=== PATIENT | female | born 1960 | race Caucasian/White ===

== ENCOUNTER → 2017-05-17 13:20 | Outpatient (CLI) | payer MEDICAID, SELFPAY ==
--- NOTE | 2017-05-17 13:26 | RAD_ITS ---
STUDY: X-RAY CHEST REASON FOR EXAM: Female, 57 years old. Dyspnea/shortness of breath. TECHNIQUE: PA and lateral views of the chest. COMPARISON: None. FINDINGS: Scattered calcified granulomas. Mild increase interstitial markings at the lung bases. This may represent mild degree of vascular congestion. There is no demonstrated pleural abnormality. Normal size heart. Normal mediastinum and ralf. Normal visualized pulmonary arteries. There is atherosclerotic tortuosity of the aortic arch and descending thoracic aorta. There are diffuse degenerative changes of the visualized thoracic spine. Normal visualized ribs, clavicles, and shoulders. There is no demonstrated abnormality of the visualized soft tissue structures of the upper abdomen. RAD/Chest PA and Lateral IMPRESSION: Findings suggest a mild degree of vascular congestion. Electronically Signed: Milad Snyder MD at 13:51 EST Tel [phone], Service support ,
== END ==
PROVIDERS: Visit Provider Physician Assistant Surgical
DX: J20.9 Acute bronchitis, unspecified (principal)
CPT/HCPCS: 71046

== ENCOUNTER 2017-06-19 16:46 | Observation (INO) | payer MEDICAID, SELFPAY ==
[2017-06-19] VITALS (8 sets, daily range): BP systolic 145–175; BP diastolic 76–108; PULSE 63–78; RESP 16–20; TEMP 36.1–36.4; O2SAT 96–100; BMI 40.5; BMI 40.3; BMI 40.4
--- NOTE | 2017-06-19 17:12 | EKG12_ITS ---
Test Reason : CP Blood Pressure : / mmHG Vent. Rate : 073 BPM Atrial Rate : 073 BPM P-R Int : 184 ms QRS Dur : 082 ms QT Int : 394 ms P-R-T Axes : 002 -25 000 degrees QTc Int : 434 ms Normal sinus rhythm Normal ECG Confirmed by HOSSEIN BRANNON MD ([id number]), medical editor REHANA MIRAMONTES ([id number]) on 06/25/2017 2:00:15 PM Referred By: SEEMA Confirmed By:HOSSEIN BRANNON MD
--- NOTE | 2017-06-19 17:20 | RAD_ITS ---
STUDY: X-RAY CHEST REASON FOR EXAM: Female, 57 years old. Chest pain. Palpitations. TECHNIQUE: Single AP portable view of the chest. COMPARISON: May 17, 2017. FINDINGS: There are monitoring devices. Right lower lung increased density. There is no demonstrated pleural abnormality. Normal size heart. Normal mediastinum and ralf. Normal visualized pulmonary arteries. Normal visualized aortic arch and descending thoracic aorta. Normal visualized thoracic spine. Normal visualized ribs, clavicles, and shoulders. There is no demonstrated abnormality of the visualized soft tissue structures of the upper abdomen. RAD/Chest 1 View (Portable) IMPRESSION: Right lower lung infiltrate. Electronically Signed: John Cruz MD at 17:46 EST , Service support ,
[2017-06-19 17:36] LABS: Absolute Lymphocyte Count 3.79 X10^3/ul (0.83-4.51); Absolute Neutrophil Count 4.8 X10^3/uL (2.0-7.7); Basophil# 0.05 X10^3/uL; Basophil% 0.5 % (0-1); Eosinophil# 0.31 X10^3/uL; Eosinophils% 3.2 % (0-5); Hematocrit 44.2 % (37-47); Lymphocyte # 3.79 X10^3/ul (4.0); Lymphocyte % 39.4 % (19-41); Mean Corp Hgb Conc 33.9 g/gl (32-36); Mean Corpuscular Hgb 30.6 pg (27.0-32.0); Mean Corpuscular Volume 90.2 fL (81-99); Mean Platelet Vol. 9.8 fl (6.2-12.0); Monocyte# 0.66 X10^3/uL; Monocyte% 6.9 % (0-10); Neutrophil % 49.8 % (47-70); Platelet Count 245 K/mm3 (150-450); RBC Distribution Width CV 13.3 % (11.6-14.6); RBC Distribution Width SD 43.7 fl (35.1-43.9); White Blood Count 9.6 K/mm3 (4.4-11.0)
[2017-06-19 17:38] LABS: POSITIVE COUNT NO; POSITIVE DIFFERENTIAL NO; POSITIVE MORPHOLOGY NO
[2017-06-19] MEDS: 0.9% Normal Saline 1,000 ML 150 ML IV (17:41)
[2017-06-19] MEDS: Aspirin 81 MG TAB.CHEW 324 MG PO (17:41)
[2017-06-19] MEDS: Ondansetron 4 MG/2 ML Vial IV (17:42)
[2017-06-19 17:51] LABS: Anion Gap 7 (5-15); BUN 11 mg/dL (7-18); BUN/Creat Ratio 14.2 RATIO (10-20); Calcium,Total 8.9 mg/dL (8.5-10.1); Chloride 101 mmol/L (98-107); Creatinine, Serum 0.77 mg/dL (0.55-1.02); EST Glomerular Filtration Rate 81 mL/min (>60); Est Glom Filt Rate - Afr Amer 98 mL/min (>60); Estimated Creatinine Clearance 67.93 ml/min; Glucose 279 mg/dL (74-106); Potassium 3.7 mmol/L (3.5-5.1); Sodium Level 136 mmol/L (136-145); Thyroid Stim Hormone (TSH) 2.01 uIU/mL (0.358-3.74)
--- NOTE | 2017-06-19 18:16 | ED.VISSUMM ---
- ER Visit Summary Date of Service: 06/19/17 Chief Complaint: Chest pain History of Present Illness: The patient is a [address] Gillespie. She reports that beginning 3 days ago she has had intermittent episodes of chest heaviness. These last approximately 10 minutes at a time. They are not related to exertion. States is 8 out of 10 at worst and 6 out of 10 currently. Is worsened by nothing and relieved by nothing. States that it radiates down her right arm. Is also associated with a fluttering sensation in her chest, nausea, and shortness of breath. States this happened 3 times since yesterday. Patient has high blood pressure, type 2 diabetes, tobacco use, and strong family history as her risk factors. She reports that she has a daughter that when she was 28 of an [place]. Also reports that her mother had a bypass at her age. Physical Examination: Vitals: Stable. Afebrile. General: Well-nourished and well-developed. Head: Normocephalic atraumatic. Neck: Supple, no lymphadenopathy. No JVD. Nontender. Cardiovascular: Regular rate and rhythm. No murmurs. Respiratory: No respiratory distress. Clear to auscultation bilaterally. Abdominal: Soft, nontender, nondistended, normal bowel sounds. No guarding, rebound, or peritoneal signs. Back: Nontender. Extremities: Nontender, no edema. Skin: Normal color, no rash. Neurologic: Alert and oriented ?3. Cranial nerves II through XII are intact. Normal strength and sensation. Psych: Normal affect. Test Results: EKG is sinus at 73 with no acute changes. Troponin is negative. CBC is normal. Chem-7 is remarkable for a glucose of 279. TSH is normal. Chest x-ray is read by radiology as a right lower lobe infiltrate. I do not agree with this. Patient does not have a cough. Her CBC is normal. Emergency Department Course and Treatment: Patient was treated with aspirin p.o. and morphine/Zofran IV. She is resting comfortably. I did not give her antibiotics as again she denies having any cough. Treatment Plan: Patient was discussed with the hospitalist. She will be admitted to the hospital for further relation treatment. Disposition: Admitted in improved condition. Impression: 1. Chest pain. 2. DIMPLE score of 1. This note was generated with Dragon dictation software. It may contain incorrect words, spelling, and punctuation that were not noted in review of the chart prior to signing ED Disposition - Plan for ED Patient: Chief Complaint: Chest Pain Referrals: [facility] Doctor,Out of [Primary Care Provider] -
--- NOTE | 2017-06-19 18:38 | PCM.HP.STD ---
<Sadiq Thrasher - Last Filed: 06/19/17 18:38> Problem List (1) Chest pain Status: Acute (2) Diabetes Status: Chronic (3) HTN (hypertension) Status: Chronic (4) Nicotine abuse Status: Chronic (5) Fibromyalgia Status: Chronic (6) Sciatica Status: Chronic (7) Morbid obesity with BMI of 40.0-44.9, adult Status: Chronic History of Present Illness Date of Admission: 06/19/17 Chief Complaint: chest pain The patient is a 57 year old F who presented to the ED with chest pain for 3 days. When it first began it was spontaneous while sitting with no aggrevating or alleviating factors. She describes it as a lower right sternal border pain described as a heart pounding with pain radiating into her right arm and associated nausea without vomiting, palpitations, and dizziness and LH. No diaphoresis. It would come and go over the last 3 days and last for about 5-10 minutes. She has a right lung infiltrate on CXR however denies SOB, cough, fevers or chills. She was successfully treated for bronchitis about 1 month ago. She had a stress test and heart cath about 10 years ago and believes it was negative. She does smoke, since age 14, and has been cutting back now at 3 cigarettes per day - denies asthma/copd.[] Past Medical History Past Medical History (Chronic Problems): Chronic Problems (Last Reviewed 05/17/17 @ 13:13 by Annie Aiken) Diabetes (Chronic) HTN (hypertension) (Chronic) Nicotine abuse (Chronic) Fibromyalgia (Chronic) Sciatica (Chronic) Morbid obesity with BMI of 40.0-44.9, adult (Chronic) Allergies oxycodone [From Percocet] Allergy (Verified 06/19/17 18:33) tachycardia Tachycardia Tetracyclines Allergy (Verified 06/19/17 16:54) Shortness of breath acetaminophen [From Vicodin] Adverse Reaction (Verified 06/19/17 18:33) Nausea/Vom/Diarrhea hydrocodone [From Vicodin] Adverse Reaction (Verified 06/19/17 18:33) Nausea/Vom/Diarrhea Home Medications: Ambulatory Orders Medication Instructions Recorded cyanocobalamin (vit B-12) 50 mcg 50 mcg PO DAILY 04/08/17 lozenges diclofenac potassium 25 mg capsule 25 mg PO DAILY 04/08/17 duloxetine 20 mg capsule,delayed 90 mg PO DAILY 04/08/17 release echinacea 400 mg capsule 400 mg PO TID 04/08/17 gabapentin 100 mg capsule 600 mg PO TID 04/08/17 lisinopril 10 40 tab PO QDAY 04/08/17 mg-hydrochlorothiazide 12.5 mg tablet metoprolol tartrate 25 mg tablet 25 mg PO QDAY 04/08/17 omeprazole magnesium 2.5 mg oral 5 mg PO QDAY 04/08/17 suspension,delayed release sitagliptin 25 mg tablet 25 mg PO ONCE 04/08/17 Epinephrine [Epi Pen] 06/19/17 Surgical History: appendectomy, cholecystectomy, rotator cuff repair, total knee arthroplasty Psychiatric History: No pertinent psych hx 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 Review of Systems Constitutional: Denies: Chills, Fever, Weakness, Weight Change, Fatigue HEENT: Denies: Head Aches, Sinus Congestion, Sinus Drainage Cardiovascular: Reports: Chest Pain, Light Headedness, Palpitations. Denies: Chest Pressure, Chest Tightness, Edema, Heaviness, Syncope Respiratory: Denies: Cough, Shortness of Breath, Shortness of breath at rest, Shortness of breath upon exertion, Sputum production, Wheezing Gastrointestinal: Denies: Abdominal Pain, Diarrhea, Nausea, Vomiting Genitourinary: Denies: Dysuria Musculoskeletal: Denies: Joint Pain, Joint Tenderness Skin: Denies: Rash, Wounds Neurological: Denies: Numbness, Tingling, Focal weakness Psychiatric: Denies: Anxiety, Depression, Homicidal Ideations, Suicidal Ideations Hematologic/ Lymphatic: Denies: Easy Bruising, Easy Bleeding VTE Information - Inpt Only VTE Present on Admission: No VTE Mechan Device Prophylaxis: SCD's VTE Pharm Prophylaxis ordered?: Yes Patient Problems: Active and Suspected Problems (Last Reviewed 05/17/17 @ 13:13 by Annie Aiken) Chest pain (Acute) - Physical Exam General: Alert, Oriented x3, Cooperative HEENT: Atraumatic, PERRLA, EOMI, Normocephalic Neck: Supple, No JVD, Negative Carotid Bruits Lungs: Clear to auscultation, Normal air movement Cardiovascular: Regular rate, No murmurs Abdomen: Bowel Sounds Present, Soft, Non Tender, Obese Extremities: No edema, Capillary Refill Less than 3 Seconds Skin: No rashes, No breakdown Musculoskeletal: No Tenderness to Palpation of Joints or Extremities Neurological: Cranial nerves II-XII grossly intact Psych/Mental Status: Normal Affect, Appropriate Vital Signs Temp Pulse Resp BP Pulse Ox 97.6 F L 63 18 150/83 H 100 06/19/17 16:48 06/19/17 18:23 06/19/17 18:23 06/19/17 18:23 06/19/17 18:23 Oxygen Flow Rate 2 Oxygen Delivery Method Nasal Cannula Weight: 107.048 kg Body Mass Index (BMI) 40.5 Laboratory Tests Past 24 Hrs 06/19/17 06/19/17 16:57 16:57 WBC 9.6 RBC 4.90 Hgb 15.0 Hct 44.2 MCV 90.2 MCH 30.6 MCHC 33.9 RDW 13.3 RDW Differential 43.7 Plt Count 245 MPV 9.8 Immature Gran % (Auto) 0.200 Neut % (Auto) 49.8 Lymph % (Auto) 39.4 [place] % (Auto) 6.9 Eos % (Auto) 3.2 Baso % (Auto) 0.5 Absolute Neuts (auto) 4.8 Absolute Lymphs (auto) 3.79 Total Counted Not Reportable Sodium 136 Potassium 3.7 Chloride 101 Carbon Dioxide 28.0 Anion Gap 7 BUN 11 Creatinine 0.77 Estim Creat Clear Calc 67.93 Est GFR (MDRD) Af Amer 98 Est GFR (MDRD) Non-Af 81 BUN/Creatinine Ratio 14.2 Glucose 279 H Calcium 8.9 Troponin I < 0.02 TSH 2.01 Assessment/Plan Active and Suspected Problems (Last Reviewed 05/17/17 @ 13:13 by Annie Aiken) Chest pain (Acute) 1. Chest pain R sternal border off an on x 3 days for 5-10 minute intervals without associated R arm radiation, palpitations, nausea. No prior CAD, negative stress and cath 10 years ago. Risk factors include smoking, T2DM, HTN, obesity, + family hx. Troponin and EKG negative, normal TSH. CXR with questionable RLL infiltrate but no symptoms of pna and negative labs with normal vitals. Prior CXR May 17 showed mild vascular congestion. She will be admitted to PCU and have troponin cycled, repeat EKG, chemical stress in AM (cannot do treadmill 2/2 sciatica). 2. T2DM - poorly controlled in ER pt says last A1C was around ten. Hold orals. SSI. Check A1C and adjust meds as needed 3. HTN - Elevated on presentation. Trend and adjust home meds. 4. Nicotine abuse - encouraged cessation, declines patch 5. Obesity - lifestyle management, DM calorie/carb controlled diet. 6. Fibromyalgia, sciatica, Chronic pain 7. Cold sore - pt requested treatment, failed outpatient topical. PO Acyclovir. DVT ppx: lovenox This patient was seen by Sadiq Thrasher PA-C under the supervision of Doctor Bhupinder. <Terese Roe - Last Filed: 06/19/17 19:08> History of Present Illness The patient is a 57 year old F [] Past Medical History Allergies oxycodone [From Percocet] Allergy (Verified 06/19/17 18:33) tachycardia Tachycardia Tetracyclines Allergy (Verified 06/19/17 16:54) Shortness of breath acetaminophen [From Vicodin] Adverse Reaction (Verified 06/19/17 18:33) Nausea/Vom/Diarrhea hydrocodone [From Vicodin] Adverse Reaction (Verified 06/19/17 18:33) Nausea/Vom/Diarrhea - Physical Exam Vital Signs Temp Pulse Resp BP Pulse Ox 97.6 F L 67 18 145/76 H 100 06/19/17 16:48 06/19/17 18:51 06/19/17 18:51 06/19/17 18:51 06/19/17 18:51 Oxygen Flow Rate 2 Oxygen Delivery Method Nasal Cannula Assessment/Plan This patient was seen in conjunction with JE Uribe. I have independently interviewed and examined the patient and reviewed pertinent historical, laboratory, and other data. Please refer to JE Uribe note for his patient's presentation, findings, and recommendations. I have reviewed and his note and concur with his documentation. 54y/o female with PMHx of hypertension, obesity, positive family history of CAD/[place], chronic smoker, in the mother and daughter, in with complaints of chest pressure, radiating down his, the last for about 10 minutes, comes on and off, associated with some shortness of breath. EKG shows NSR, labs are normal. Physical Exam: Gen: Obese, not pale, not jaundiced, well hydrated, appears comfortable CVS:HS I +II, regular, no murmurs Lungs: Clinically clear to auscultation GI: Full, firm, nontender, no palpable organs EXT:No edema ASSESSMENT: 1. Chest pain, atypical 2. Chronic nicotine use disorder 3. Type 2DM 4. Obesity 5. Hypertension 6. Herpes simplex oral, failed topical preparation Plan: Admitted to PCU, trend troponins, monitor on telemetry, lipid profile, HgBa1c in am, nuclear stress test in am. Patient refused a nicotine patch, continue on home medications. Diet and exercise as well as smoking cessation stressed. Code Visit OBSV E&M: 41078 Initial observation care L3
[2017-06-19 19:17] LABS: Hemoglobin A1c 10.4 % (4.2-6.3)
[2017-06-19] MEDS: Acetaminophen 325 MG Tablet 650 MG PO (20:33)
[2017-06-19] MEDS: Gabapentin 800 MG Tablet PO (23:05)
[2017-06-19] MEDS: Acyclovir 200 MG Capsule 400 MG PO (23:06)
[2017-06-20] VITALS (8 sets, daily range): BP systolic 123–149; BP diastolic 63–74; PULSE 68–82; RESP 16–18; TEMP 36.3–36.8; O2SAT 94–96
[2017-06-20] MEDS: Acyclovir 200 MG Capsule 400 MG PO ×2 (05:45→13:27)
[2017-06-20] MEDS: Aspirin E.C. 81 MG Tablet PO (05:45)
--- NOTE | 2017-06-20 05:55 | RAD_ITS ---
STUDY: X-RAY CHEST REASON FOR EXAM: Female, 57 years old. Chest pain and chest pressure for 3 days. TECHNIQUE: PA and lateral views of the chest. COMPARISON: Comparison is made with prior study dated June 19, 2017 at 5:30 PM. FINDINGS: Mild increased markings at the lung bases suggestive of bibasilar atelectasis and/or early infiltrates. Follow-up is recommended. There is no demonstrated pleural abnormality. Normal size heart. Normal mediastinum and ralf. Normal visualized pulmonary arteries. There is atherosclerotic tortuosity of the aortic arch and descending thoracic aorta. There are diffuse degenerative changes of the visualized thoracic spine. Normal visualized ribs, clavicles, and shoulders. There is no demonstrated abnormality of the visualized soft tissue structures of the upper abdomen. RAD/Chest PA and Lateral IMPRESSION: Mild increased markings at the lung bases suggesting atelectasis and/or early infiltrates. Electronically Signed: Milad Snyder MD at 11:18 EST Tel [phone], Service support ,
--- NOTE | 2017-06-20 05:55 | EKG12_ITS ---
Test Reason : AM EKG Blood Pressure : / mmHG Vent. Rate : 073 BPM Atrial Rate : 073 BPM P-R Int : 208 ms QRS Dur : 080 ms QT Int : 414 ms P-R-T Axes : 043 -20 -01 degrees QTc Int : 456 ms Normal sinus rhythm Normal ECG No previous ECGs available Confirmed by CLOVIS BUSBY, HOSSEIN ([id number]), design editor REHANA MIRAMONTES ([id number]) on 06/26/2017 1:19:42 PM Referred By: DR LIVINGSTON Confirmed By:HOSSEIN BRANNON MD
[2017-06-20 06:36] LABS: Bedside Glucose 188 mg/dL (70-110)
--- NOTE | 2017-06-20 08:40 | STRESSREP_ITS ---
Stress Test Report Pharmacologic myocardial perfusion stress test. 57-year-old lady with a history of chest pain. Stress protocol: Resting EKG demonstrates normal sinus rhythm with a rate of 72 bpm. Resting blood pressure is 126/78 mmHg. 0.4 mg regadenoson was infused per usual protocol followed by rapid intravenous saline flush injection. Continuous EKG monitoring was performed. The maximum heart rate attained was 86 bpm which was 53% of the maximum predicted heart rate the maximum workload attained was 1 metabolic equivalent. At rest there were no ST or T-wave changes noted suggest ischemia and at peak infusion no ST or T-wave changes were noted suggest ischemia. The resting blood pressure is 126/78 with a final blood pressure 118/ 68. Myocardial perfusion protocol. 14.5 mCi of technetium 99m sestamibi was injected at rest. 0.4 mg of regadenoson was infused per usual protocol. Peak infusion 44.2 mCi of technetium 99m sestamibi was injected. Stress images were obtained. Stress and rest images were reconstructed and compared in the short axis vertical long and horizontal long axis. Gated images were also obtained Perfusion SPECT analysis: Review of the stress images demonstrate normal uptake of tracer noted in all areas of the myocardium. The resting images demonstrate normal uptake of tracer noted in all areas of the myocardium. No areas of reversibility are noted suggest ischemia. No previous infarct is noted. Gated SPECT analysis. Gated ejection fraction is 69%. Conclusion: Normal pharmacologic myocardial perfusion stress test. Preserved ejection fraction.
[2017-06-20 09:07] LABS: Absolute Lymphocyte Count 3.02 X10^3/ul (0.83-4.51); Absolute Neutrophil Count 4.4 X10^3/uL (2.0-7.7); Basophil# 0.03 X10^3/uL; Basophil% 0.4 % (0-1); Eosinophil# 0.22 X10^3/uL; Eosinophils% 2.7 % (0-5); Hematocrit 41.6 % (37-47); Hemoglobin 14.3 g/dl (12.0-15.0); Lymphocyte # 3.02 X10^3/ul (4.0); Lymphocyte % 36.9 % (19-41); Mean Corp Hgb Conc 34.4 g/gl (32-36); Mean Corpuscular Hgb 30.9 pg (27.0-32.0); Mean Corpuscular Volume 89.8 fL (81-99); Mean Platelet Vol. 9.4 fl (6.2-12.0); Monocyte# 0.51 X10^3/uL; Monocyte% 6.2 % (0-10); Neutrophil # 4.39 X10^3/uL (2.7-7.7); Neutrophil % 53.6 % (47-70); Platelet Count 226 K/mm3 (150-450); RBC Distribution Width CV 13.4 % (11.6-14.6); RBC Distribution Width SD 43.8 fl (35.1-43.9); Red Blood Count 4.63 M/mm3 (4.2-5.4); White Blood Count 8.2 K/mm3 (4.4-11.0)
[2017-06-20 09:09] LABS: POSITIVE COUNT NO; POSITIVE DIFFERENTIAL NO; POSITIVE MORPHOLOGY NO
[2017-06-20 09:29] LABS: International Normalized Ratio 0.9
[2017-06-20 09:30] LABS: Partial Thromboplast Time 27.2 Seconds (24.1-36.2)
[2017-06-20] MEDS: Metoprolol Tartrate 25 MG Tablet PO (09:31)
[2017-06-20] MEDS: Gabapentin 800 MG Tablet PO ×2 (09:31→13:27)
[2017-06-20] MEDS: DULoxetine Hcl 30 MG Capsule 90 MG PO (09:31)
[2017-06-20] MEDS: Vitamin B Comp W-C Capsule 1 CAP PO (09:32)
[2017-06-20] MEDS: Pantoprazole Sodium 20 MG Tablet PO (09:32)
[2017-06-20 09:36] LABS: AST(SGOT) 24 U/L (15-37); Alanine Aminotransfer ALT/SGPT 41 U/L (13-56); Albumin, Serum 3.2 g/dL (3.2-5.0); Alkaline Phosphatase 117 U/L (45-117); Anion Gap 8 (5-15); BUN 14 mg/dL (7-18); BUN/Creat Ratio 19.4 RATIO (10-20); Calcium,Total 8.2 mg/dL (8.5-10.1); Chloride 102 mmol/L (98-107); Cholesterol 191 mg/dL (200); Creatinine, Serum 0.72 mg/dL (0.55-1.02); EST Glomerular Filtration Rate 88 mL/min (>60); Est Glom Filt Rate - Afr Amer 107 mL/min (>60); Estimated Creatinine Clearance 72.65 ml/min; Globulin 3.3 g/dL (2.2-4.2); Glucose 249 mg/dL (74-106); High Density Lipoprotein 37 mg/dL; Potassium 3.9 mmol/L (3.5-5.1); Protein, Total 6.5 g/dL (6.4-8.2); Sodium Level 136 mmol/L (136-145); Triglycerides 211 mg/dL; Very Low Density Lipoprotein 42 mg/dL (5-40)
--- NOTE | 2017-06-20 13:11 | PCM.DC ---
- Discharge Diagnoses Current Active Problems: Current Active and Chronic Problems (Last Reviewed 05/17/17 @ 13:13 by Annie Aiken) Chest pain (Acute) Diabetes (Chronic) HTN (hypertension) (Chronic) Nicotine abuse (Chronic) Fibromyalgia (Chronic) Sciatica (Chronic) Morbid obesity with BMI of 40.0-44.9, adult (Chronic) You will use the following diet at home:: Calorie/Carbohydrate Controlled (specify 1200, 1400, etc), Cardiac Discharge Activity: Return to Normal Activity Call your doctor if you observe: Shortness of breath, Dizziness, Fainting spells, Chest pain, Increased palpitations (irregular heartbeat) Allergies/Adverse Reactions: Allergies bee venom protein (honey bee) Allergy (Verified 06/19/17 19:24) Anaphylaxis oxycodone [From Percocet] Allergy (Verified 06/19/17 18:33) tachycardia Tachycardia Tetracyclines Allergy (Verified 06/19/17 16:54) Shortness of breath acetaminophen [From Vicodin] Adverse Reaction (Verified 06/19/17 18:33) Nausea/Vom/Diarrhea hydrocodone [From Vicodin] Adverse Reaction (Verified 06/19/17 18:33) Nausea/Vom/Diarrhea Medications to take at Discharge echinacea 400 mg capsule 400 mg PO BID 04/08/17 metoprolol tartrate 25 mg tablet 25 mg PO BID 04/08/17 Diclofenac Sodium [Diclofenac Sodium ER] 100 mg PO DAILY 06/19/17 Duloxetine HCl 90 mg PO DAILY 06/19/17 Gabapentin [Neurontin] 800 mg PO TID 06/19/17 GlipiZIDE (XL) [Glucotrol Xl] 10 mg PO DAILY 06/19/17 Omeprazole 20 mg PO DAILY 06/19/17 Simvastatin [Zocor] 40 mg PO QHS 06/19/17 Sitagliptin Phosphate [Januvia] 100 mg PO DAILY 06/19/17 Vitamin B Complex 1 each PO DAILY 06/19/17 Acyclovir [Zovirax] 400 mg PO TID #42 cap 06/20/17 Lisinopril/Hydrochlorothiazide [Zestoretic 20/12.5 Tablet] 2 tablet PO DAILY 06/20/17 The following prescriptions were given: Acyclovir [Zovirax] 400 mg PO TID #42 cap Primary Care Physician: Starla Okeefe,Out of [Primary Care Provider] - Please follow up with your Primary Care Physician in: 1 Week Proposed Discharge Date: 06/20/17
--- NOTE | 2017-06-20 13:12 | PCM.DC.SUM ---
Discharge Date and Diagnosis Date of Admission: 06/19/17 Date of Discharge: 06/20/17 - Primary Discharge Diagnosis Active and Suspected Problems (Last Reviewed 05/17/17 @ 13:13 by Annie Aiken) 1. Atypical chest pain- ACS ruled out 2. Uncontrolled type 2 diabetes mellitus 3. Oral herpes simplex - Secondary Discharge Diagnosis Chronic Problems (Last Reviewed 05/17/17 @ 13:13 by Annie Aiken) Diabetes (Chronic) HTN (hypertension) (Chronic) Nicotine abuse (Chronic) Fibromyalgia (Chronic) Sciatica (Chronic) Morbid obesity with BMI of 40.0-44.9, adult (Chronic) Hospital Course and Treatment Imaging Results: 06/20/17 05:55 Chest PA and Lateral [RAD] AM (NON MEDS) Nuclear Stress Test - Chemical [NM] AM (NON MEDS) Operations: None Procedures: Stress test Summary of Care Provided: The patient is a 57 year old F who presented to the Emergency Room 06/19/17 due to chest pain for 3 days. She describes associated palpitations and right arm pain. ACS ruled out. She underwent nuclear stress test which was negative for ischemia. Troponin negative. EKG negative. TSH within normal limits. No arrhythmias or tachycardia noted on telemetry. Patient's past medical history includes type 2 diabetes mellitus, hypertension, nicotine abuse, obesity, fibromyalgia. Patient's diabetes is poorly controlled. She states she is currently working on this with her primary care physician. Hemoglobin A1c 10.4%. Will defer further home medication adjustments to primary care physician. Patient was noted to have oral herpes simplex lesions which failed topical treatment as outpatient. She will be discharged on acyclovir for 7 days of treatment. Chest x-ray on admission showed questionable right lower lobe infiltrates. Patient denies cough. Negative for infectious etiology. Patient denies fever, chills. Previous chest x-ray 05/17/2017 showed mild vascular congestion. Recommend continued outpatient monitoring. Other chronic medical conditions as noted above are stable at this time. Patient is stable for discharge home with further follow-up with primary care physician. Patient seen and examined prior to discharge. Heart rate regular rate and rhythm. Lungs clear. Abdomen soft, nontender. Neuro grossly intact. Vital signs stable. This patient was seen by PARISH Ocasio under the supervision of Dr. Carbajal. Discharge Diet: Low fat/ Low Cholesterol, Carb Control Diet Discharge Activity: Return to Normal Activity Call your doctor if you observe: Shortness of breath, Dizziness, Fainting spells, Chest pain, Increased palpitations (irregular heartbeat) Home Medications: Medications to take at Discharge echinacea 400 mg capsule 400 mg PO BID 04/08/17 metoprolol tartrate 25 mg tablet 25 mg PO BID 04/08/17 Diclofenac Sodium [Diclofenac Sodium ER] 100 mg PO DAILY 06/19/17 Duloxetine HCl 90 mg PO DAILY 06/19/17 Gabapentin [Neurontin] 800 mg PO TID 06/19/17 GlipiZIDE (XL) [Glucotrol Xl] 10 mg PO DAILY 06/19/17 Omeprazole 20 mg PO DAILY 06/19/17 Simvastatin [Zocor] 40 mg PO QHS 06/19/17 Sitagliptin Phosphate [Januvia] 100 mg PO DAILY 06/19/17 Vitamin B Complex 1 each PO DAILY 06/19/17 Acyclovir [Zovirax] 400 mg PO TID #42 cap 06/20/17 Lisinopril/Hydrochlorothiazide [Zestoretic 20/12.5 Tablet] 2 tablet PO DAILY 06/20/17 Following Prescrptions Were Given to Patient: Acyclovir [Zovirax] 400 mg PO TID #42 cap Primary Care Physician: Starla Okeefe,Out of [Primary Care Provider] - Please follow up with your Primary Care Physician in: 1 Week Disposition: Home Minutes spent on discharge:: 35 Patient Condition:: Stable Meaningful Use Info Meaningful Use Diagnoses (Choose all that apply): None applicable
--- NOTE | 2017-06-20 13:26 | DS.PCM_ITS ---
Discharge Date and Diagnosis Date of Admission: 06/19/17 Date of Discharge: 06/20/17 - Primary Discharge Diagnosis Active and Suspected Problems (Last Reviewed 05/17/17 @ 13:13 by Annie Aiken) 1. Atypical chest pain- ACS ruled out 2. Uncontrolled type 2 diabetes mellitus 3. Oral herpes simplex - Secondary Discharge Diagnosis Chronic Problems (Last Reviewed 05/17/17 @ 13:13 by Annie Aiken) Diabetes (Chronic) HTN (hypertension) (Chronic) Nicotine abuse (Chronic) Fibromyalgia (Chronic) Sciatica (Chronic) Morbid obesity with BMI of 40.0-44.9, adult (Chronic) Hospital Course and Treatment Imaging Results: 06/20/17 05:55 Chest PA and Lateral [RAD] AM (NON MEDS) Nuclear Stress Test - Chemical [NM] AM (NON MEDS) Operations: None Procedures: Stress test Summary of Care Provided: The patient is a 57 year old F who presented to the Emergency Room 06/19/17 due to chest pain for 3 days. She describes associated palpitations and right arm pain. ACS ruled out. She underwent nuclear stress test which was negative for ischemia. Troponin negative. EKG negative. TSH within normal limits. No arrhythmias or tachycardia noted on telemetry. Patient's past medical history includes type 2 diabetes mellitus, hypertension, nicotine abuse, obesity, fibromyalgia. Patient's diabetes is poorly controlled. She states she is currently working on this with her primary care physician. Hemoglobin A1c 10.4% . Will defer further home medication adjustments to primary care physician. Patient was noted to have oral herpes simplex lesions which failed topical treatment as outpatient. She will be discharged on acyclovir for 7 days of treatment. Chest x-ray on admission showed questionable right lower lobe infiltrates. Patient denies cough. Negative for infectious etiology. Patient denies fever, chills. Previous chest x-ray 05/17/2017 showed mild vascular congestion. Recommend continued outpatient monitoring. Other chronic medical conditions as noted above are stable at this time. Patient is stable for discharge home with further follow-up with primary care physician. Patient seen and examined prior to discharge. Heart rate regular rate and rhythm. Lungs clear. Abdomen soft, nontender. Neuro grossly intact. Vital signs stable. This patient was seen by PARISH Ocasio under the supervision of Dr. Carbajal. Discharge Diet: Low fat/ Low Cholesterol, Carb Control Diet Discharge Activity: Return to Normal Activity Call your doctor if you observe: Shortness of breath, Dizziness, Fainting spells , Chest pain, Increased palpitations (irregular heartbeat) Home Medications: Medications to take at Discharge echinacea 400 mg capsule 400 mg PO BID 04/08/17 metoprolol tartrate 25 mg tablet 25 mg PO BID 04/08/17 Diclofenac Sodium [Diclofenac Sodium ER] 100 mg PO DAILY 06/19/17 Duloxetine HCl 90 mg PO DAILY 06/19/17 Gabapentin [Neurontin] 800 mg PO TID 06/19/17 GlipiZIDE (XL) [Glucotrol Xl] 10 mg PO DAILY 06/19/17 Omeprazole 20 mg PO DAILY 06/19/17 Simvastatin [Zocor] 40 mg PO QHS 06/19/17 Sitagliptin Phosphate [Januvia] 100 mg PO DAILY 06/19/17 Vitamin B Complex 1 each PO DAILY 06/19/17 Acyclovir [Zovirax] 400 mg PO TID #42 cap 06/20/17 Lisinopril/Hydrochlorothiazide [Zestoretic 20/12.5 Tablet] 2 tablet PO DAILY 05/09 Following Prescrptions Were Given to Patient: Acyclovir [Zovirax] 400 mg PO TID #42 cap Primary Care Physician: Starla Okeefe,Out of [Primary Care Provider] - Please follow up with your Primary Care Physician in: 1 Week Disposition: Home Minutes spent on discharge:: 35 Patient Condition:: Stable Meaningful Use Info Meaningful Use Diagnoses (Choose all that apply): None applicable
[2017-06-20] MEDS: Lisinopril 40 MG Tablet PO (13:28)
[2017-06-20] MEDS: hydroCHLOROthiazide 25 MG Tablet PO (13:28)
== END 2017-06-20 13:35 | disposition home or self-care (01) ==
LOC: ED 17:38 → PCU 18:56
PROVIDERS: Admitting Provider Internal Medicine; Emergency Provider Emergency Medicine; Visit Provider Internal Medicine
DX: R07.89 Other chest pain (principal); E11.65 Type 2 diabetes mellitus with hyperglycemia; E66.01 Morbid (severe) obesity due to excess calories; Z68.41 Body mass index [BMI] 40.0-44.9, adult; Z71.3 Dietary counseling and surveillance; M54.30 Sciatica, unspecified side; M79.7 Fibromyalgia; I10 Essential (primary) hypertension; F17.210 Nicotine dependence, cigarettes, uncomplicated; Z79.899 Other long term (current) drug therapy; Z79.84 Long term (current) use of oral hypoglycemic drugs; B00.1 Herpesviral vesicular dermatitis
CPT/HCPCS: 36415; 71045; 71046; 78452; 80048; 80053; 80061; 82962; 83036; 84443; 84484; 85025; 85610; 85730; 93005; 93017; 96361; 96374; 96375; 99218; 99285; A9500; J7030; A4216; G0378; J2405; J2785

== ENCOUNTER 2020-02-18 22:42 | Inpatient (IN) | payer MEDICAID, SELFPAY ==
[2020-02-18 22:43] VITALS: BP 151/93; PULSE 93; RESP 18; TEMP 36.3; O2SAT 97; BMI 42.5
--- NOTE | 2020-02-18 22:59 | CT_ITS ---
STUDY: CT BRAIN WITHOUT CONTRAST REASON FOR EXAM: Female, 60 years old. FRONTAL HEADACHE X 2 WEEKS,CONFUSION AND LT OCCIPITAL PAIN TONIGHT,ELEVATED BP -- HX:DIABETES,HTN RADIATION DOSAGE (If Supplied By Facility): CTDIvol = ( 44.99 ) mGy, DLP = ( 829.85 ) mGycm TECHNIQUE: Transaxial CT imaging of the brain was performed without administration of intravenous contrast material. Individualized dose optimization techniques were used for this CT. COMPARISON: No relevant priors. FINDINGS: Normal soft tissue structures. Normal calvarium. Normal size ventricles and extra-axial spaces for the patient''s age. Normal white matter tracts of the cerebral hemispheres. Normal basal ganglia and thalami. Normal brainstem. Normal cerebellum. There is no intracranial hemorrhage. There are no findings of an acute ischemic infarction. Normal visualized paranasal sinuses. CT/Brain/Head without Contrast IMPRESSION: Normal unenhanced CT scan of the brain. Electronically Signed: Yue Calle MD at 23:33 EDT , Service support ,
[2020-02-18] MEDS: 0.9% Normal Saline 1,000 ML 999 ML IV (23:08)
--- NOTE | 2020-02-18 23:09 | ED.DCSUM_ITS ---
History of Present Illness Chief Complaint: Headache Informant: Patient Narrative: Patient presents the emergency department for the evaluation of headache and confusion. She tells me that for the past 2 weeks she has been experiencing a frontal headache and spots in her vision. Tonight she is watching television her family felt that she was confused and she began to get a pain left occipital and left neck region. She points to the left first rib area and describes it as a throbbing pounding sensation. She states is not necessarily worse with touch. She states she cannot remember her doctors name. She denies any arm or leg deficits. No visual field cuts. No slurred speech. She denies any fever, vomiting, diarrhea, or urinary symptoms. - Past Medical History (1) Diabetes Status: Chronic (2) Fibromyalgia Status: Chronic (3) HTN (hypertension) Status: Chronic (4) Morbid obesity with BMI of 40.0-44.9, adult Status: Chronic Past Medical History - Allergies and Home Meds Allergies/Adverse Reactions: Allergies bee venom protein (honey bee) Allergy (Verified 02/18/20 22:46) Anaphylaxis oxycodone [From Percocet] Allergy (Verified 02/18/20 22:46) tachycardia Tachycardia Tetracyclines Allergy (Verified 02/18/20 22:46) Shortness of breath acetaminophen [From Vicodin] Adverse Reaction (Verified 02/18/20 22:46) Nausea/Vom/Diarrhea hydrocodone [From Vicodin] Adverse Reaction (Verified 02/18/20 22:46) Nausea/Vom/Diarrhea Primary Care Physician: [facility] Doctor,Out of [NON-STAFF] - Prior records reviewed: Yes Surgical History: appendectomy, cholecystectomy, rotator cuff repair, total knee arthroplasty Smoking Status: Current every day smoker Drugs: None - Family History Maternal Family History: Reports: Heart Disease Offspring Family History: Reports: Heart Disease - daughter at 30 of [place]. Review of Systems General: Denies: Chills, Fever, Sweats Eyes: Denies: Visual changes - bilaterally, Diplopia ENT: Denies: Rhinorrhea, Sore throat Cardiovascular: Denies: Chest pain, Palpitations Respiratory: Denies: Dyspnea, Cough, Dyspnea on exertion Gastrointestinal: Denies: Abdominal pain, Nausea, Vomiting, Diarrhea, Melena, Hematochezia Genitourinary: Denies: Dysuria, Hematuria, Frequency Musculoskeletal: Denies: Back pain, Extremity Pain Skin: Denies: Rash, Wounds Neurological: Reports: Headache, - - Confusion. Denies: Weakness, Parasthesia, Numbness Psych: Denies: Suicidal thoughts, Suicidal ideations Physical Exam Vital Signs/Narrative: Vital Signs Temp Pulse Resp BP Pulse Ox 02/18/20 22:43 97.3 F L 93 18 151/93 H 97 Inital Vital Signs reviewed: Yes General: Well nourished, Well developed, Obese, No Acute Distress Head: Normocephalic, Atraumatic Eyes: Perrl, EOMI ENT: Moist mucous membranes, No rhinorrhea Neck: Supple, Nontender Cardiovascular: Regular rate, Regular rhythm, No murmurs Respiratory: No distress, CTA bilaterally, Chest nontender Abdomen: Soft, Nontender, Nondistended, Normal bowel sounds Back: Nontender, Normal Inspection Extremities: Nontender, No edema Skin: Normal color, No rash Neurological: Alert, Oriented x3 - Patient appears to be ANO x3. During conversation she will occasionally say the wrong word but knows that she is saying the wrong word and then finds it., Cranial nerves II-XII grossly intact, Normal Strength, Normal Sensation, - - NIH 0. Negative for: Normal Gait, Disoriented Psychological: Tearful Diagnostic/Tx/Re-eval Laboratory Last Values WBC 11.3 K/mm3 (4.4-11.0) H 02/18/20 23:05 RBC 4.22 M/mm3 (4.2-5.4) 02/18/20 23:05 Hgb 12.9 g/dL (12.0-15.0) 02/18/20 23:05 Hct 38.6 % (37-47) 02/18/20 23:05 MCV 91.5 fL (81-99) 02/18/20 23:05 MCH 30.6 pg (27.0-32.0) 02/18/20 23:05 MCHC 33.4 g/dL (32-36) 02/18/20 23:05 RDW Std Deviation 42.9 fl (35.1-43.9) 02/18/20 23:05 RDW Coeff of Lorie 13.1 % (11.6-14.6) 02/18/20 23:05 Plt Count 329 K/mm3 (150-450) 02/18/20 23:05 MPV 9.8 fl (6.2-12.0) 02/18/20 23:05 Immature Gran % (Auto) 0.900 % (0.0-0.9) 02/18/20 23:05 Neut % (Auto) 54.4 % (47-70) 02/18/20 23:05 Lymph % (Auto) 34.6 % (19-41) 02/18/20 23:05 Graham % (Auto) 6.9 % (0-10) 02/18/20 23:05 Eos % (Auto) 2.5 % (0-5) 02/18/20 23:05 Baso % (Auto) 0.7 % (0-1) 02/18/20 23:05 Absolute Neuts (auto) 6.2 X10^3/uL (2.0-7.7) 02/18/20 23:05 Absolute Lymphs (auto) 3.91 X10^3/uL (0.83-4.51) 02/18/20 23:05 Nucleated RBC % 0 % (0-5) 02/18/20 23:05 Sodium 136 mmol/L (136-145) 02/18/20 23:05 Potassium 3.6 mmol/L (3.5-5.1) 02/18/20 23:05 Chloride 102 mmol/L (98-107) 02/18/20 23:05 Carbon Dioxide 26.0 mmol/L (21.0-32.0) 02/18/20 23:05 Anion Gap 8 (5-15) 02/18/20 23:05 BUN 17 mg/dL (7-18) 02/18/20 23:05 Creatinine 1.25 mg/dL (0.55-1.02) H 02/18/20 23:05 Estim Creat Clear Calc 38.60 ml/min 02/18/20 23:05 Est GFR (MDRD) Af Amer 56 mL/min (>60) L 02/18/20 23:05 Est GFR (MDRD) Non-Af 46 mL/min (>60) L 02/18/20 23:05 BUN/Creatinine Ratio 13.6 RATIO (10-20) 02/18/20 23:05 Glucose 346 mg/dL (74-106) H 02/18/20 23:05 Calcium 8.9 mg/dL (8.5-10.1) 02/18/20 23:05 Total Bilirubin 0.30 mg/dL (0.20-1.00) 02/18/20 23:05 AST 19 U/L (15-37) 02/18/20 23:05 ALT 30 U/L (13-56) 02/18/20 23:05 Alkaline Phosphatase 166 U/L (45-117) H 02/18/20 23:05 Total Protein 7.0 g/dL (6.4-8.2) 02/18/20 23:05 Albumin 3.5 g/dL (3.2-5.0) 02/18/20 23:05 Globulin 3.5 g/dL (2.2-4.2) 02/18/20 23:05 Albumin/Globulin Ratio 1.0 RATIO (0.9-2.4) 02/18/20 23:05 Urine Color Yellow (Yellow) 02/19/20 00:30 Urine Clarity Clear (Clear) 02/19/20 00:30 Urine pH 6.5 (5.0 - 8.0) 02/19/20 00:30 Ur Specific [place] 1.010 (1.002-1.030) 02/19/20 00:30 Urine Protein Negative mg/dl (Negative) 02/19/20 00:30 Urine Glucose (UA) 1000 mg/dl (Normal) H 02/19/20 00:30 Urine Ketones Negative mg/dl (Negative) 02/19/20 00:30 Urine Occult Blood Negative /ul (Negative) 02/19/20 00:30 Urine Nitrite Negative (Negative) 02/19/20 00:30 Urine Bilirubin Negative mg/dL (Negative) 02/19/20 00:30 Urine Urobilinogen Normal mg/dl (Normal) 02/19/20 00:30 Ur Leukocyte Esterase 100 /ul (Negative) H 02/19/20 00:30 Urine RBC 0 SEEN /hpf (0-5) 02/19/20 00:30 Urine WBC 0-5 SEEN /hpf (0-5) 02/19/20 00:30 Ur Squamous Epith Cells 0-5 SEEN /hpf (5-10) 02/19/20 00:30 Urine Bacteria 0 SEEN /hpf (None Seen) 02/19/20 00:30 Urine Mucus 0 SEEN /hpf (<or=2+) 02/19/20 00:30 POC Glucose 317 mg/dL (70-110) H 02/18/20 23:11 Clinical Impression(s) from Imaging Studies Brain CT 02/18/20 22:59 IMPRESSION: Normal unenhanced CT scan of the brain. Electronically Signed: Yue Calle MD at 23:33 EDT , Service support , Chest X-Ray 02/18/20 23:22 IMPRESSION: No acute cardiopulmonary findings or changes. Negative for consolidation, other infiltrates, pleural effusion or cardiomegaly. Electronically Signed: Yue Calle MD at 23:37 EDT , Service support , Head/Neck CTA 02/19/20 00:57 IMPRESSION: 1. Mild atherosclerotic changes in the right bulb region and the origin of the right internal carotid artery without significant stenosis. 2. Tortuous origin of the common carotid arteries and the proximal right internal carotid artery. 3. Patent bilateral vertebral arteries. 4. No intracranial stenosis is seen. Electronically Signed: Sebastian Mcgill MD at 2:05 EDT Tel , Service support , - Medical Decision Making Patient has been watched on the monitor. She is in a normal sinus rhythm. I do not appreciate any focal neurologic deficits but the patient still seems to have some degree of confusion. She is cannot remember her doctors name. Observed her walking to the bathroom and a very shuffling gait but did not seem ataxic. She required a wheelchair to come back from the bathroom. I do not see anything obvious on her work-up to explain her symptoms. However 60-year-old female with acute confusion that is unexplained that normally lives at home with family I think it is reasonable that we observe her. ED Disposition - Plan for ED Patient: Disposition: Acute Care Hospital [facility] Diagnosis: Uncontrolled diabetes mellitus, Encephalopathy acute Referrals: [facility] Doctor,Out of [NON-STAFF] -
[2020-02-18 23:16] LABS: Bedside Glucose 317 mg/dL (70-110)
--- NOTE | 2020-02-18 23:22 | RAD_ITS ---
STUDY: X-RAY CHEST REASON FOR EXAM: Female, 60 years old. CONFUSION. TECHNIQUE: One view COMPARISON: Prior chest radiograph of 06/20/2017, 06/19/2017 and 05/17/2017 FINDINGS: The lungs are clear and expanded. There is no demonstrated pleural abnormality. Normal size heart. Normal mediastinum and ralf. Normal visualized pulmonary arteries. There is atherosclerotic calcification of the aortic arch with tortuosity. Normal visualized thoracic spine. Normal visualized ribs, clavicles, and shoulders. There is no demonstrated abnormality of the visualized soft tissue structures of the upper abdomen. RAD/Chest 1 View (Portable) IMPRESSION: No acute cardiopulmonary findings or changes. Negative for consolidation, other infiltrates, pleural effusion or cardiomegaly. Electronically Signed: Yue Calle MD at 23:37 EDT , Service support ,
[2020-02-18 23:29] LABS: Absolute Lymphocyte Count 3.91 X10^3/uL (0.83-4.51); Absolute Neutrophil Count 6.2 X10^3/uL (2.0-7.7); Basophil# 0.08 X10^3/uL; Basophil% 0.7 % (0-1); Eosinophil# 0.28 X10^3/uL; Eosinophils% 2.5 % (0-5); Hematocrit 38.6 % (37-47); Hemoglobin 12.9 g/dL (12.0-15.0); Lymphocyte # 3.91 X10^3/ul (4.0); Lymphocyte % 34.6 % (19-41); Mean Corp Hgb Conc 33.4 g/dL (32-36); Mean Corpuscular Hgb 30.6 pg (27.0-32.0); Mean Corpuscular Volume 91.5 fL (81-99); Mean Platelet Vol. 9.8 fl (6.2-12.0); Monocyte# 0.78 X10^3/uL; Monocyte% 6.9 % (0-10); NRBC Flagged by Analyzer 0 % (0-5); Neutrophil # 6.16 X10^3/uL (2.7-7.7); Neutrophil % 54.4 % (47-70); Platelet Count 329 K/mm3 (150-450); RBC Distribution Width CV 13.1 % (11.6-14.6); RBC Distribution Width SD 42.9 fl (35.1-43.9); Red Blood Count 4.22 M/mm3 (4.2-5.4); White Blood Count 11.3 K/mm3 (4.4-11.0)
[2020-02-18 23:35] LABS: AST(SGOT) 19 U/L (15-37); Alanine Aminotransfer ALT/SGPT 30 U/L (13-56); Albumin, Serum 3.5 g/dL (3.2-5.0); Alkaline Phosphatase 166 U/L (45-117); Anion Gap 8 (5-15); BUN 17 mg/dL (7-18); BUN/Creat Ratio 13.6 RATIO (10-20); Calcium,Total 8.9 mg/dL (8.5-10.1); Chloride 102 mmol/L (98-107); Creatinine, Serum 1.25 mg/dL (0.55-1.02); EST Glomerular Filtration Rate 46 mL/min (>60); Est Glom Filt Rate - Afr Amer 56 mL/min (>60); Globulin 3.5 g/dL (2.2-4.2); Glucose 346 mg/dL (74-106); Potassium 3.6 mmol/L (3.5-5.1); Sodium Level 136 mmol/L (136-145)
[2020-02-19] VITALS (18 sets, daily range): BP systolic 124–173; BP diastolic 60–81; PULSE 70–91; RESP 15–18; TEMP 36.2–36.8; O2SAT 95–98; BMI 44.5; BMI 44.6
[2020-02-19] MEDS: Ketorolac 30 MG/ML Syringe IV (00:30)
[2020-02-19 00:39] LABS: Bacteria 0 SEEN /hpf (None Seen); Color, Urine Yellow (Yellow); Glucose, Dipstick 1000 mg/dl (Normal); Ketone-Dipstick Negative (Negative); Leukocyte Esterase-Dipstick 100 /ul (Negative); Mucous, Urine 0 SEEN /hpf (<or=2+); Nitrite-Dipstick Negative (Negative); Occult Blood-Urine Negative /ul (Negative); Protein-Dipstick Negative (Negative); Red Blood Cells-Urine 0 SEEN /hpf (0-5); Urine Bilirubin Dipstick Negative (Negative); Urine Clarity Clear (Clear); Urine Urobilinogen Normal (Normal); Urine pH 6.5 (5.0 - 8.0)
[2020-02-19 00:47] LABS: Squamous Epithelial Cells - UA 0-5 SEEN /hpf (5-10); White Blood Cells 0-5 SEEN /hpf (0-5)
--- NOTE | 2020-02-19 00:57 | CT_ITS ---
STUDY: CTA HEAD AND NECK WITH CONTRAST REASON FOR EXAM: Female, 60 years old. HEADACHE X 2 WEEKS AND Confusion, elevated BP, -- HX:HTN,DIABETES RADIATION DOSAGE (If Supplied By Facility): CTDIvol = ( 24.23 ) mGy, DLP = ( 698.07 ) mGycm TECHNIQUE: CT angiography was performed with a multi-detector CT scanner. Data acquisition was obtained from the skull base through the vertex following intravenous administration of IV 100mL [id number]. MIP images were reconstructed from the axial data set. Post-processing of the angiographic images was performed, with multiplanar reformation and 3D reconstruction. Individualized dose optimization techniques were used for this CT. COMPARISON: No relevant priors. FINDINGS: Normal bilateral petrous carotid arteries. There is calcified plaque formation of the right cavernous carotid artery, without a cross-sectional luminal stenosis. There is calcified plaque formation of the left cavernous carotid artery, without a cross-sectional luminal stenosis. Normal right A1 segments of the anterior cerebral artery. Normal left A1 segments of the anterior cerebral artery. Normal intact anterior communicating artery (ACOM). Normal bilateral A2 segments of the anterior cerebral arteries. Normal right M1 and M2 segments of the middle cerebral arteries, with a normal M1 bifurcation. Normal left M1 and M2 segments of the middle cerebral arteries, with a normal M1 bifurcation. Normal right posterior communicating artery (PCOM). Normal left posterior communicating artery (PCOM). Normal bilateral vertebral arteries. Normal basilar artery with a normal basilar bifurcation. The visualized bilateral superior cerebellar (SCA) arteries are normal. There is no demonstrated definite aneurysm of the [place] within the limitation of this examination. There is no demonstrated abnormality of the visualized brain. AORTIC ARCH: Normal visualized aortic arch. Normal origins of the brachiocephalic, left common carotid, and left subclavian arteries. RIGHT CAROTID ARTERIES: There is atherosclerotic tortuous elongation of the right common carotid artery. There is mild atherosclerotic plaque formation with minimal narrowing of the right carotid bulb. There is mild atherosclerotic plaque formation of the origin of the right internal carotid artery with less than 50% cross sectional diameter stenosis. There is marked tortuosity of the proximal right internal carotid artery. Normal visualized cervical portion of the right internal carotid artery. Normal origin of the right external carotid artery (ECA). LEFT CAROTID ARTERIES: There is atherosclerotic tortuous elongation of the left common carotid artery. Normal left common carotid bulb. Normal origin of the left internal carotid (ICA) artery without a hemodynamically significant stenosis. Normal visualized cervical portion of the left internal carotid artery. Normal origin of the left external carotid artery (ECA). VERTEBRAL ARTERIES: Normal bilateral vertebral arteries. CT/CTA Head AND Neck W/ Contrast IMPRESSION: 1. Mild atherosclerotic changes in the right bulb region and the origin of the right internal carotid artery without significant stenosis. 2. Tortuous origin of the common carotid arteries and the proximal right internal carotid artery. 3. Patent bilateral vertebral arteries. 4. No intracranial stenosis is seen. Electronically Signed: Sebastian Mcgill MD at 2:05 EDT Tel , Service support ,
--- NOTE | 2020-02-19 02:39 | HP.PCM_ITS ---
Problem List (1) Uncontrolled diabetes mellitus Status: Acute (2) Encephalopathy acute Status: Acute (3) Diabetes Status: Chronic (4) HTN (hypertension) Status: Chronic (5) Nicotine abuse Status: Chronic (6) Fibromyalgia Status: Chronic (7) Sciatica Status: Chronic (8) Morbid obesity with BMI of 40.0-44.9, adult Status: Chronic History of Present Illness Date of Admission: 02/19/20 Chief Complaint: confusion The patient is a 60 year old F with a significant history of fibromyalgia; sciatica; morbid obesity; hypertension; and diabetes who presents to the e mergency department with confusion. History is difficulty to obtain as patient is confused. Attempts were made to reach her daughter who is the vault person listed on EMR. However her daughters telephone line did not go through. Emergent department doctor obtained history from patient's daughter and patient's son. History was obtained from emergency department doctor. Per emergent department patient had frontal headache x 2 weeks; confusion; and 'spots' in her vision . Per Emergency department doctor patient was pointing to her first rib and left occipital area as area of pain. At my examination patient pointed to left posterior lateral neck as area of pain. Past Medical History Past Medical History (Chronic Problems): Chronic Problems (Last Reviewed 02/19/20 @ 04:[address] Dionicio Woodward MD) Diabetes (Chronic) HTN (hypertension) (Chronic) Nicotine abuse (Chronic) Fibromyalgia (Chronic) Sciatica (Chronic) Morbid obesity with BMI of 40.0-44.9, adult (Chronic) Medical History: Medical History (Last Reviewed 02/19/20 @ 04:[address] Dionicio Woodward MD) Arthritis M19.90 Diabetes E11.9 Shoulder pain M25.519 HTN (hypertension) I10 Allergies bee venom protein (honey bee) Allergy (Verified 02/18/20 22:46) Anaphylaxis oxycodone [From Percocet] Allergy (Verified 02/18/20 22:46) tachycardia Tachycardia Tetracyclines Allergy (Verified 02/18/20 22:46) Shortness of breath acetaminophen [From Vicodin] Adverse Reaction (Verified 02/18/20 22:46) Nausea/Vom/Diarrhea hydrocodone [From Vicodin] Adverse Reaction (Verified 02/18/20 22:46) Nausea/Vom/Diarrhea Home Medications: Ambulatory Orders Medication Instructions Recorded echinacea 400 mg capsule 400 mg PO BID 04/08/17 metoprolol tartrate 25 mg tablet 25 mg PO BID 04/08/17 Diclofenac Sodium [Diclofenac 100 mg PO DAILY 06/19/17 Sodium ER] Duloxetine HCl 90 mg PO DAILY 06/19/17 Gabapentin [Neurontin] 900 mg PO TID 06/19/17 Omeprazole 20 mg PO DAILY 06/19/17 Vitamin B Complex 1 ea PO DAILY 06/19/17 glipiZIDE XL [Glucotrol Xl] 10 mg PO DAILY 06/19/17 Lisinopril/Hydrochlorothiazide 2 tab PO DAILY 06/20/17 [Zestoretic 20/12.5 Tablet] Ascorbic Acid [Vitamin C] 500 mg PO DAILY 02/18/20 Aspirin [Aspirin, Baby] 81 mg PO DAILY@0800 02/18/20 Dulaglutide [Trulicity] 0.75 mg SQ QWEEK 02/18/20 Insulin Glargine,Hum.rec.anlog 70 unit SC QHS 02/18/20 [Lantus] Insulin Regular, Human [Humulin R 8 unit SQ TID 02/18/20 U-500 Kwikpen] Multivitamin 1 ea PO DAILY 02/18/20 Surgical History: Surgical History (Last Reviewed 07/06/17 @ 13:04 by Annie Aiken) H/O shoulder surgery Z98.890 History of knee replacement Z96.659 Surgical History: appendectomy, cholecystectomy, rotator cuff repair, total knee arthroplasty Psychiatric History: No pertinent psych hx [employer] ME[employer] History: No pertinent [employer] history Smoking Status: Current every day smoker Tobacco Use: Cigarettes Drugs: None - *Family History Maternal History Items: Heart Disease Offspring History Items: Heart Disease - daughter at 30 of [place]. Review of Systems Unable to obtain accurate/complete ROS d/t: Confusion. Unable to reach family. VTE Information - Inpt Only VTE Present on Admission: No VTE Mechan Device Prophylaxis: None VTE Pharm Prophylaxis ordered?: Yes Patient Problems: Active and Suspected Problems (Last Reviewed 02/19/20 @ 04:[address] Dionicio Woodward MD) Uncontrolled diabetes mellitus (Acute) Encephalopathy acute (Acute) - Physical Exam Vitals/I&O's: Vital Signs Temp Pulse Resp BP Pulse Ox 97.2 F L 83 16 132/73 H 97 02/19/20 02:06 02/19/20 02:06 02/19/20 02:06 02/19/20 02:06 02/19/20 02:06 Oxygen Delivery Method Room Air Weight: 108.862 kg Body Mass Index (BMI) 42.5 Intake and Output for Last 24 Hours 02/17/20 02/18/20 02/19/20 23:59 23:59 23:59 Intake Total 1000 / 1000 Balance 1000 / 1000 General: Alert, Confused HEENT: Atraumatic, PERRLA, EOMI, Normocephalic Neck: Supple, No JVD, Negative Carotid Bruits Lungs: Clear to auscultation, Normal air movement, No rhonchi, No wheeze, No rales Cardiovascular: Regular rate, Normal S1, Normal S2, No murmurs Abdomen: Bowel Sounds Present, Soft, Non Tender Extremities: No edema, Capillary Refill Less than 3 Seconds Skin: No rashes, No breakdown Musculoskeletal: No Tenderness to Palpation of Joints or Extremities Neurological: Cranial nerves II-XII grossly intact, - - Strength in right upper extremity 5 out of 5. Strength in all other extremities 4 out of 5. Psych/Mental Status: Normal Affect, Appropriate Laboratory Results 02/18/20 23:05: WBC 11.3 H, RBC 4.22, Hgb 12.9, Hct 38.6, MCV 91.5, MCH 30.6, MCHC 33.4, RDW Std Deviation 42.9, RDW Coeff of Lorie 13.1, Plt Count 329, MPV 9.8, Immature Gran % (Auto) 0.900, Neut % (Auto) 54.4, Lymph % (Auto) 34.6, [place] % (Auto) 6.9, Eos % (Auto) 2.5, Baso % (Auto) 0.7, Absolute Neuts (auto) 6.2, Absolute Lymphs (auto) 3.91, Nucleated RBC % 0 02/18/20 23:05: Sodium 136, Potassium 3.6, Chloride 102, Carbon Dioxide 26.0, Anion Gap 8, BUN 17, Creatinine 1.25 H, Estim Creat Clear Calc 38.60, Est GFR (MDRD) Af Amer 56 L, Est GFR (MDRD) Non-Af 46 L, BUN/Creatinine Ratio 13.6, Glucose 346 H, Calcium 8.9, Total Bilirubin 0.30, AST 19, ALT 30, Alkaline Phosphatase 166 H, Total Protein 7.0, Albumin 3.5, Globulin 3.5, Albumin/Globulin Ratio 1.0 02/18/20 23:11: POC Glucose 317 H 02/19/20 00:30: Urine Color Yellow, Urine Clarity Clear, Urine pH 6.5, Ur Specific [place] 1.010, Urine Protein Negative, Urine Glucose (UA) 1000 H, Urine Ketones Negative, Urine Occult Blood Negative, Urine Nitrite Negative, Urine Bilirubin Negative, Urine Urobilinogen Normal, Ur Leukocyte Esterase 100 H, Urine RBC 0 SEEN, Urine WBC 0-5 SEEN, Ur Squamous Epith Cells 0-5 SEEN, Urine Bacteria 0 SEEN, Urine Mucus 0 SEEN Assessment/Plan All Active Problems (Last Reviewed 02/19/20 @ 04:[address] Dionicio Woodward MD) Uncontrolled diabetes mellitus (Acute) Encephalopathy acute (Acute) Acute encephalopathy CT brain did not show any acute pathology Ammonia level, TSH, and vitamin B12 ordered. Electrolytes are unremarkable. MRI of the brain ordered. Decrease gabapentin dose. Neck pain Lidoderm patch ordered. Tylenol as needed ordered. Diabetes mellitus Blood glucose is not within goal Glipizide and Lantus continued. Prandial insulin continued. Accu-Chek with correction scale insulin ordered. On home dulaglutide. Hypertension BP is not within goal Metoprolol continued Lisinopril/hydrochlorothiazide continued. Depression/anxiety Duloxetine continued. Morbid obesity: BMI of 44.6. Complicates care. Outside Sales Account Representative when appropriate. Nicotine abuse Outside Sales Account Representative when appropriate DVT prophylaxis Subcutaneous Lovenox ordered. OBSV E&M: [id number] Initial observation care L3
--- NOTE | 2020-02-19 03:05 | MRI_ITS ---
We are attempting to reach an attending provider to discuss findings. An addendum with communication details will be sent when the communication is complete. STUDY: MRI BRAIN WITHOUT CONTRAST REASON FOR EXAM: Female, 60 years old. H/A x 2 weeks, memory issues, AMS TECHNIQUE: Standardized multiplanar fat and water weighted pulse sequences were obtained. COMPARISON: CT 02/18/2020 FINDINGS: There is mild cerebral atrophy with widening of the extra-axial spaces and ventricular dilatation. There are a limited number of small white matter hyperintensities, distributed throughout the deep white matter tracts of the cerebral hemispheres, consistent with mild chronic white matter ischemic changes. There is subtle hyperintensities of the periventricular left temporal lobe and inferior left parietal lobe which demonstrate restricted diffusion consistent with subacute infarct. Normal T2* images of the brain without demonstrated susceptibility artifact. There is no demonstrated hemosiderin stain. Normal bilateral basal ganglia. Normal thalami. There is no extra-axial fluid accumulation. Normal flow voids within the major intracranial circulation suggesting patency by spin echo criteria. Normal sella turcica, pituitary gland, infundibular stalk, optic chiasm and hypothalamus. Normal tectal plate and pineal gland. Normal midbrain, felecia and medulla. Normal cerebellum. Normal basal cisterns. Normal bilateral temporal bones. Normal bilateral internal auditory canals. No demonstrated orbital abnormality, within the constraints of a routine brain study. Normal visualized paranasal sinuses. Normal calvarium and skull base. Normal visualized soft tissue structures. Normal visualized upper cervical spine. MRI/Brain without Contrast IMPRESSION: Subacute infarct of the left temporal lobe and inferior left parietal lobe. Electronically Signed: Vamsi Woodson MD at 9:25 EDT Tel , Service support ,
[2020-02-19 03:40] LABS: Vitamin B12 386 pg/mL (211-911)
[2020-02-19 03:41] LABS: Thyroid Stim Hormone (TSH) 1.31 uIU/mL (0.358-3.74)
[2020-02-19] MEDS: Gabapentin 100 MG Capsule PO ×3 (04:41→22:25)
[2020-02-19] MEDS: Lidocaine 5% Patch 1 PATCH TOPICAL (04:41)
[2020-02-19] MEDS: 0.9% Normal Saline 1,000 ML 100 ML IV (05:59)
[2020-02-19 06:24] LABS: Absolute Neutrophil Count 4.7 X10^3/uL (2.0-7.7); Basophil# 0.06 X10^3/uL; Basophil% 0.6 % (0-1); Eosinophil# 0.27 X10^3/uL; Eosinophils% 2.7 % (0-5); Hematocrit 36.9 % (37-47); Hemoglobin 11.9 g/dL (12.0-15.0); Lymphocyte % 42.3 % (19-41); Mean Corp Hgb Conc 32.2 g/dL (32-36); Mean Corpuscular Hgb 29.6 pg (27.0-32.0); Mean Corpuscular Volume 91.8 fL (81-99); Mean Platelet Vol. 9.1 fl (6.2-12.0); Monocyte% 7.1 % (0-10); NRBC Flagged by Analyzer 0 % (0-5); Neutrophil # 4.67 X10^3/uL (2.7-7.7); Neutrophil % 47.1 % (47-70); Platelet Count 281 K/mm3 (150-450); RBC Distribution Width SD 43.6 fl (35.1-43.9); Red Blood Count 4.02 M/mm3 (4.2-5.4); White Blood Count 9.9 K/mm3 (4.4-11.0)
[2020-02-19 07:04] LABS: Anion Gap 7 (5-15); BUN 17 mg/dL (7-18); Calcium,Total 8.3 mg/dL (8.5-10.1); Chloride 103 mmol/L (98-107); Creatinine, Serum 1.06 mg/dL (0.55-1.02); EST Glomerular Filtration Rate 56 mL/min (>60); Est Glom Filt Rate - Afr Amer 68 mL/min (>60); Estimated Creatinine Clearance 45.52 ml/min; Glucose 192 mg/dL (74-106); Potassium 3.6 mmol/L (3.5-5.1); Sodium Level 138 mmol/L (136-145); Thyroid Stim Hormone (TSH) 0.92 uIU/mL (0.358-3.74)
[2020-02-19 08:25] LABS: Bedside Glucose 163 mg/dL (70-110)
--- NOTE | 2020-02-19 09:51 | PCM.PN.HOSP ---
Patient Problems: Active and Suspected Problems (Last Reviewed 02/19/20 @ 04:[address] Dionicio Rees MD) Uncontrolled diabetes mellitus (Acute) Encephalopathy acute (Acute) Reason for Visit: CVA Subjective: Anxious to go home and take care of her kids who are 17 and 14 years old (Conferred with patient's dtr, Sivlia, pt does have a 17 year old son, but she herself is not 14). Vitals/I&O's: Vital Signs Temp Pulse Resp BP Pulse Ox 36.7 C 75 16 143/81 H 96 02/19/20 03:14 02/19/20 09:20 02/19/20 09:20 02/19/20 03:14 02/19/20 09:20 Oxygen Delivery Method Room Air Weight: 114.1 kg Body Mass Index (BMI) 44.5 Intake and Output for Last 24 Hours 02/17/20 02/18/20 02/19/20 23:59 23:59 23:59 Intake Total 1355 / 1355 Balance 1355 / 1355 General: Alert, - - anxious. afebrile. HEENT: Atraumatic, Normocephalic Oral: Moist Mucosa, No Gingival or Mucosal Lesions/ Ulcerations Neck: No Nodes, Thyroid Normal Size and Texture Lungs: Clear to auscultation, Normal air movement, No rhonchi, No wheeze, No rales Cardiovascular: Regular rate, Regular Rhythm, Normal S1, Normal S2, No murmurs Abdomen: Bowel Sounds Present, Soft, Non Tender, Non-Distended, No Hepato-splenomegaly Extremities: No edema, No Calf Tenderness Psych/Mental Status: Agitated, Anxious Laboratory Results 02/18/20 23:05: WBC 11.3 H, RBC 4.22, Hgb 12.9, Hct 38.6, MCV 91.5, MCH 30.6, MCHC 33.4, RDW Std Deviation 42.9, RDW Coeff of Lorie 13.1, Plt Count 329, MPV 9.8, Immature Gran % (Auto) 0.900, Neut % (Auto) 54.4, Lymph % (Auto) 34.6, [place] % (Auto) 6.9, Eos % (Auto) 2.5, Baso % (Auto) 0.7, Absolute Neuts (auto) 6.2, Absolute Lymphs (auto) 3.91, Nucleated RBC % 0 02/18/20 23:05: Sodium 136, Potassium 3.6, Chloride 102, Carbon Dioxide 26.0, Anion Gap 8, BUN 17, Creatinine 1.25 H, Estim Creat Clear Calc 38.60, Est GFR (MDRD) Af Amer 56 L, Est GFR (MDRD) Non-Af 46 L, BUN/Creatinine Ratio 13.6, Glucose 346 H, Calcium 8.9, Total Bilirubin 0.30, AST 19, ALT 30, Alkaline Phosphatase 166 H, Total Protein 7.0, Albumin 3.5, Globulin 3.5, Albumin/Globulin Ratio 1.0 02/18/20 23:05: Vitamin B12 386 02/18/20 23:05: TSH 1.31 02/18/20 23:11: POC Glucose 317 H 02/19/20 00:30: Urine Color Yellow, Urine Clarity Clear, Urine pH 6.5, Ur Specific [place] 1.010, Urine Protein Negative, Urine Glucose (UA) 1000 H, Urine Ketones Negative, Urine Occult Blood Negative, Urine Nitrite Negative, Urine Bilirubin Negative, Urine Urobilinogen Normal, Ur Leukocyte Esterase 100 H, Urine RBC 0 SEEN, Urine WBC 0-5 SEEN, Ur Squamous Epith Cells 0-5 SEEN, Urine Bacteria 0 SEEN, Urine Mucus 0 SEEN 02/19/20 06:16: WBC 9.9, RBC 4.02 L, Hgb 11.9 L, Hct 36.9 L, MCV 91.8, MCH 29.6, MCHC 32.2, RDW Std Deviation 43.6, RDW Coeff of Lorie 13.0, Plt Count 281, MPV 9.1, Immature Gran % (Auto) 0.200, Neut % (Auto) 47.1, Lymph % (Auto) 42.3 H, [place] % (Auto) 7.1, Eos % (Auto) 2.7, Baso % (Auto) 0.6, Absolute Neuts (auto) 4.7, Absolute Lymphs (auto) 4.20, Nucleated RBC % 0 02/19/20 06:16: Sodium 138, Potassium 3.6, Chloride 103, Carbon Dioxide 28.0, Anion Gap 7, BUN 17, Creatinine 1.06 H, Estim Creat Clear Calc 45.52, Est GFR (MDRD) Af Amer 68, Est GFR (MDRD) Non-Af 56 L, BUN/Creatinine Ratio 16.0, Glucose 192 H, Calcium 8.3 L, TSH 0.92 02/19/20 06:16: Ammonia 23.0 02/19/20 08:08: POC Glucose 163 H Clinical Impression(s) from Imaging Studies Brain CT 02/18/20 22:59 IMPRESSION: Normal unenhanced CT scan of the brain. Electronically Signed: Yue Calle MD at 23:33 EDT , Service support , Chest X-Ray 02/18/20 23:22 IMPRESSION: No acute cardiopulmonary findings or changes. Negative for consolidation, other infiltrates, pleural effusion or cardiomegaly. Electronically Signed: Yue Calle MD at 23:37 EDT , Service support , Head/Neck CTA 02/19/20 00:57 IMPRESSION: 1. Mild atherosclerotic changes in the right bulb region and the origin of the right internal carotid artery without significant stenosis. 2. Tortuous origin of the common carotid arteries and the proximal right internal carotid artery. 3. Patent bilateral vertebral arteries. 4. No intracranial stenosis is seen. Electronically Signed: Sebastian Mcgill MD at 2:05 EDT Tel , Service support , Brain MRI 02/19/20 03:05 IMPRESSION: Subacute infarct of the left temporal lobe and inferior left parietal lobe. Electronically Signed: Vamsi Woodson MD at 9:25 EDT Tel , Service support , ADDENDUM: 02/19/20 0943 IMPRESSION: Subacute infarct of the left temporal lobe and inferior left parietal lobe. N.B. : The above information has been verbally conveyed by Vamsi Woodson MD to DIONICIO REES on 02/19/2020 09:36:13 (ET). Electronically Signed: Vamsi Woodson MD at 9:25 EDT Tel , Service support , Current Medications Acetaminophen (Acetaminophen 325 Mg Tablet) 650 mg PO Q6H PRN PRN PRN Reason: Pain Score 1-10/Temp > 100.7 F Ascorbic Acid (Ascorbic Acid 500 Mg Tablet) 500 mg PO DAILY [facility] Aspirin (Aspirin 81 Mg Tab.Chew) 81 mg PO DAILY@0800 [facility] Dextrose (Dextrose 50%-Water 25 Gm/50 Ml Disp.Syrin) 0 gm IV X1 PRN; Protocol PRN Reason: Hypoglycemia Enoxaparin Sodium (Enoxaparin 40 Mg/0.4 Ml Syringe) 40 mg SC DAILY [facility] Gabapentin (Gabapentin 100 Mg Capsule) 100 mg PO TID [facility] Last Admin: 02/19/20 04:41 Dose: 100 mg Documented by: Glipizide (Glipizide 10 Mg Tablet) 10 mg PO DAILY@0730 [facility] Glucagon (Glucagon 1 Mg/Ml Syringe) 1 mg IM .X1 PRN PRN Reason: Hypoglycemia Sodium Chloride () 250 mls @ 15 mls/hr IV .[id number] PRN PRN Reason: Saline Flush Sodium Chloride () 250 mls @ 15 mls/hr IV .[id number] PRN PRN Reason: Additional IVPB Infusion Sodium Chloride () 1,000 mls @ 100 mls/hr IV .Q10H [facility] Last Infusion: 02/19/20 08:20 Dose: 0 mls/hr Documented by: Influenza Virus Vaccine Quadrival (Influenza Vaccine (6mos+)/Pf 0.5 Ml Syringe) 0.5 ml IM .ONCE ONE Stop: 02/19/20 10:01 Insulin Glargine (Insulin Glargine 100 Units/Ml Pen) 70 units SC QHS [facility] Insulin Human Lispro (Insulin Lispro 100 Unit/Ml Insuln.Pen) 0 unit SC ACHS [facility]; Protocol Insulin Human Regular (Insulin U-500 Pen) 8 units SC TID [facility] Lidocaine (Lidocaine 5% Patch) 1 patch TOPICAL DAILY [facility]; Protocol Last Admin: 02/19/20 04:41 Dose: 1 patch Documented by: Metoprolol Tartrate (Metoprolol Tartrate 25 Mg Tablet) 25 mg PO BID [facility] Multivitamins (Multivitamins,Therapeutic Tablet) 1 tablet PO DAILYCM BRIANA Multivitamins (Vitamin B Comp W-C Capsule) 1 capsule PO DAILY [facility] Ondansetron HCl (Ondansetron 4 Mg/2 Ml Vial) 4 mg IV Q8H PRN PRN PRN Reason: NAUSEA/VOMITING Pantoprazole Sodium (Pantoprazole Sodium 20 Mg Tablet) 20 mg PO DAILY BRIANA Sodium Chloride (0.9% Saline Lock 10 Ml Syringe) 10 - 40 ml IV UD PRN PRN Reason: SALINE FLUSH STROKE Vital Signs/Narrative: Vital Signs Pulse Resp Pulse Ox 02/19/20 09:20 75 16 96 02/19/20 07:02 80 Medical Necessity - Tobacco Use Smoking Status: Current every day smoker Tobacco Use: Cigarettes Assessment/Plan All Active Problems (Last Reviewed 02/19/20 @ 04:[address] Dionicio Rees MD) Uncontrolled diabetes mellitus (Acute) Encephalopathy acute (Acute) 1. acute CVA acute CVA to left temporal and parietal brain likely cause of confusion pt still confused and anxious on ASA, add high-intensity statin check echo, then consult SOC teleneurology 2. DM2 fair control at present on glargine, scheduled U500 and SSI on glipizide dulaglutide as outpt 3. VTE prophylaxis: LMWH Updated pt's Silvia sullivan. Procedures: Other Procedure - See Report - non-billable rounding as patient admitted after midnight
[2020-02-19] MEDS: glipiZIDE 10 MG Tablet PO (10:31)
[2020-02-19] MEDS: Enoxaparin 40 MG/0.4 ML Syringe SC (10:31)
[2020-02-19] MEDS: Aspirin 81 MG TAB.CHEW PO (10:32)
[2020-02-19] MEDS: Pantoprazole Sodium 20 MG Tablet PO (10:32)
[2020-02-19] MEDS: Metoprolol Tartrate 25 MG Tablet PO ×2 (10:32→22:25)
[2020-02-19] MEDS: Vitamin B Comp W-C Capsule 1 CAP PO (10:32)
[2020-02-19] MEDS: Ascorbic Acid 500 MG Tablet PO (10:33)
[2020-02-19] MEDS: Multivitamins,Therapeutic Tablet 1 TABLET PO (10:33)
[2020-02-19] MEDS: Insulin Lispro 100 UNIT/ML INSULN.PEN SC ×2 (10:45→13:29)
[2020-02-19] MEDS: Insulin Lispro 100 UNIT/ML INSULN.PEN 10 UNIT SC (10:45)
--- NOTE | 2020-02-19 12:58 | CASEMGMT ---
RIKKI BLACKBURN assessment: Face to Face with patient for initial transition planning/care coordination assessment. RIKKI BLACKBURN introduced self and role at [facility], pt voices understanding and consents to assessment at this time. Pt is sitting up on side of bed in no distress at this time. Pt is A/O but has difficulty with word retrieval and gets very frustrated when cannot express self correctly. Pt also has some short term memory loss as she has been repeatedly told she had a CVA but acts like she is hearing it anew each time. Care providers, pharmacy, and demographics verified/updated at this time. Presenatation: Pt c/o NDIAYE [id number], per son pt has been confused Admitting dx: CVA PCP: Pt cannot remember PCP name at this time. Specialists: Pt states no current specialists. Preferred Pharmacy: [facility] Insurance: [employer] Prescription Benefit: [employer] Living Will/HPOA: Pt states no LW/HPOA and declines AD info at this time. LNOK: Silvia Quiroz, daughter Living Arrangements: Pt states lives with 17yo son, Joni Griffith, in 1 story home with no concerns at home at this time. Pt states is normally independent with ADL's. Transportation: Pt states normally drives self and states no transportation concerns at this time. DME/HHC: Pt states no current DME or need for any at this time. Pt states no hx of HHC or SNF in the past. Pt states no concerns with going home at time of discharge. 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 Pt states smokes about 1/2-1 pack cigarettes daily and states does not drink ETOH. Pt states no further concerns/needs at this time. CM to follow for therapy evals and for any further discharge planning/needs. Pt is agreeable to OP therapy order at this time. Advised pt to ask for CM if any further questions/concerns/needs arise, voices understanding. Pt Goal: Home Plan: Home w/ [place] RIKKI BLACKBURN
[2020-02-19 13:06] LABS: Bedside Glucose 246 mg/dL (70-110)
[2020-02-19] MEDS: Insulin Lispro 100 UNIT/ML INSULN.PEN 8 UNIT SC (13:30)
--- NOTE | 2020-02-19 15:08 | NURSING ---
Read and reviewed SN documentation
--- NOTE | 2020-02-19 16:31 | ECHOCS_ITS ---
Reason For Study: CVA Procedure This was a 2D Doppler, Color Flow transthoracic echocardiogram. The study was technically difficult. Contrast injection was performed. Exam performed portable in patient room. Left Ventricle Normal LV size. Concentric left ventricular hypertrophy. Left ventricular systolic function is normal. The estimated ejection fraction is 55 %. Diastolic function is indeterminate. No regional wall motion abnormalities noted. Right Ventricle Mildly dilated right ventricle. Mild global right ventricular systolic dysfunction. Atria Normal left atrium. Normal right atrium. Mitral Valve Mild mitral annular calcification. Mild-Moderate (1-2+) eccentric mitral valve insufficiency. Tricuspid Valve Unable to estimate RV systolic pressure due to insufficient tricuspid regurgitant envelope. Trivial tricuspid valve insufficiency. Aortic Valve There is no aortic stenosis. Pulmonic Valve No eccentric pulmonic valve insufficiency. Great Vessels Normal inferior vena cava. and partially collapses. Pericardium/Pleural No pericardial effusion. Medication Diluted definity 2ml given slow IV push to enhance endocardial definition. Performed a rapid injection of agitated mix of 9 cc saline and 1cc air to assess for atrial septal defect. MMode/2D Measurements & Calculations LVIDd: 4.5 cm IVSd: 1.7 cm Ao root diam: 3.7 cm LVIDs: 2.6 cm LVPWd: 1.5 cm LA dimension: 3.3 cm FS: 42.6 % LAV(MOD-bp): 52.8 ml LA A4 area: 17.9 cm2 RA A4 area: 14.7 cm2 LAV(MOD-bp) Indexed: 24.8 ml/m2 LAV(MOD-sp2): 54.3 ml LAV(MOD-sp4): 51.0 ml Time Measurements MV dec time: 0.33 sec Doppler Measurements & Calculations MV E max ousmane: 84.3 cm/sec Lat Peak E' Ousmane: 5.6 cm/sec Med Peak E' Ousmane: 4.6 cm/sec MV A max ousmane: 102.8 cm/sec E/E' lat: 15.2 E/E' med: 18.4 MV E/A: 0.82 MV V2 max: 126.2 cm/sec MV P1/2t max ousmane: 107.9 cm/sec Ao V2 max: 102.9 cm/sec MV max P.4 mmHg MV P1/2t: 102.7 msec Ao max P.2 mmHg MV V2 mean: 76.0 cm/sec MV dec slope: 307.6 cm/sec2 MV mean P.6 mmHg MV V2 VTI: 33.8 cm MVA(P1/2t): 2.1 cm2 LV V1 max: 99.8 cm/sec PA V2 max: 86.7 cm/sec LV V1 max P.0 mmHg Interpretation Summary Left ventricular systolic function is normal. The estimated ejection fraction is 55 %. Normal LV size. Diastolic function is indeterminate. Mildly dilated right ventricle. Mild global right ventricular systolic dysfunction. Mild-Moderate (1-2+) eccentric mitral valve insufficiency. Normal inferior vena cava. and partially collapses. Ordering Physician: Jeffrey Restrepo Referring Physician: NO PCP Performed By: August Fontenot RCS
[2020-02-19 17:16] LABS: Bedside Glucose 155 mg/dL (70-110)
[2020-02-19] MEDS: Acetaminophen 325 MG Tablet 650 MG PO (22:26)
--- NOTE | 2020-02-19 22:31 | NURSING ---
PATIENT COMPLAINING OF A HEADACHE, STATES HAS HAD ONE OFF AND ON FOR A COUPLE OF WEEKS. STATES UNABLE TO SEE WELL WITHOUT GLASSES, RN UNABLE TO FINE THEM, PATIENT IS ABLE TO SEE SOME OF THE IMAGES ON NIH SHEET. STATES NORMALLY CAN NOT SEE VERY WELL CLOSE UP
[2020-02-19 22:50] LABS: Bedside Glucose 82 mg/dL (70-110)
[2020-02-19 23:03] LABS: Urea Nitrogen, Urine 180 mg/dL (NO RANGE EST.)
[2020-02-19 23:16] LABS: Urine Sodium 46 mmol/L (Not Establ.)
[2020-02-20] VITALS (12 sets, daily range): BP systolic 138–170; BP diastolic 54–78; PULSE 70–81; RESP 16–18; TEMP 36.4–37.1; O2SAT 94–98
--- NOTE | 2020-02-20 02:27 | NURSING ---
NIH LIMITED PATIENT STATES SHE IS VERY TIRED AND WANTS TO SLEEP.
[2020-02-20 06:17] LABS: Cholesterol 146 mg/dL (200); High Density Lipoprotein 44 mg/dL; Triglycerides 183 mg/dL; Very Low Density Lipoprotein 37 mg/dL (5-40)
[2020-02-20] MEDS: Acetaminophen 325 MG Tablet 650 MG PO ×2 (06:20→18:07)
[2020-02-20] MEDS: glipiZIDE 10 MG Tablet PO (06:20)
[2020-02-20] MEDS: Gabapentin 100 MG Capsule PO ×3 (06:20→23:11)
[2020-02-20 07:01] LABS: Bedside Glucose 111 mg/dL (70-110)
--- NOTE | 2020-02-20 10:08 | CASEMGMT ---
SW spoke w/pt briefly, she is able to speak w/SW and answer questions. Pt answered questions on PHQ-9, and answered that she is having no depressive symptoms. Pt tearful however, but not engaging in any conversation w/SW about mental health at this time. She states she just wants to go home, declined to speak w/SW further. Pt declined any needs at this time. SW did explain is available to assist should she decide it would be helpful to speak further w/SW. GARCIA Trammell
[2020-02-20] MEDS: Pantoprazole Sodium 20 MG Tablet PO (10:21)
[2020-02-20] MEDS: Enoxaparin 40 MG/0.4 ML Syringe SC (10:21)
[2020-02-20] MEDS: Vitamin B Comp W-C Capsule 1 CAP PO (10:21)
[2020-02-20] MEDS: Metoprolol Tartrate 25 MG Tablet PO ×2 (10:21→23:10)
[2020-02-20] MEDS: Multivitamins,Therapeutic Tablet 1 TABLET PO (10:21)
[2020-02-20] MEDS: Aspirin 81 MG TAB.CHEW PO (10:22)
[2020-02-20] MEDS: Lidocaine 5% Patch 1 PATCH TOPICAL (10:22)
[2020-02-20] MEDS: Ascorbic Acid 500 MG Tablet PO (10:22)
--- NOTE | 2020-02-20 11:30 | CASEMGMT ---
SW spoke w/physician, concern in regard to pt going home and children at home, asked SW to call daughter to check in as pt is still having intermittent confusion. SW called daughter Silvia. Silvia confirmed pt is normally home w/17 yr old son Luis and 12 year old grandson Freddy. She states that the boys are fine at home, and that they have a support network of people checking in on the kids while pt is in the hospital. She is not concerned about them, though is going there today to check on them as well. She states the 17 yr old is responsible, took the 12 year old to school yesterday. She states the family friends are checking in on them, both announced and unannounced. We discussed pt having a stroke and how it is seeming to impact pt. SW offered support to daughter. SW inquired w/Silvia about LW/POA. She states she has been the pt's go to person for years, but they have not completed the LW/POA papers. SW explained will give pt the blank forms and that she can come back in when feeling better to complete, or can do it on her own as well with witnessed or having the document notarized. Daughter states understanding. SW also did let daughter know that there is a speech therapy script that will go home w/pt and she can set this up where she'd like. Daughter states son will be able to take her to outpt PT. We spoke about discharge plan, daughter anticipates it will be fine for pt to return home when ready, and states that there would be family friends available to stay w/pt if needed. She would not necessarily be able to stay w/pt as she is an hour away. Daughter explains she does not want pt discharged too soon however. SW explained will ask physician to reach out to her prior to discharge and will bring pt blank LW/POA forms. SW spoke again w/pt, let her know spoke w/daughter and we spoke about LW/POA papers. Pt states she is in charge of her own decisions. SW explained what the POA document is, and let her know she can follow up to complete them when able. Pt nodded in agreement. Pt also stating she wants to go home today. SW offered support to pt. JANINE updated physician and bedside nurse. SW remains available should any additional needs arise. GARCIA Trammell
[2020-02-20 12:30] LABS: Bedside Glucose 179 mg/dL (70-110)
--- NOTE | 2020-02-20 13:01 | TELEMED_ITS ---
[facility] Tele[facility] has confirmed receipt of a request for visit. This document confirms receipt of the order initiating the consult. To find the results of the consultation, please view the patient's reports for the scanned Telemed Consult.
--- NOTE | 2020-02-20 16:14 | PN_ITS ---
Patient Problems: Active and Suspected Problems (Last Reviewed 02/19/20 @ 04:[address] Dionicio Woodward MD) Uncontrolled diabetes mellitus (Acute) Encephalopathy acute (Acute) Reason for Visit: CVA Subjective: Still anxious to go home. Vitals/I&O's: Vital Signs Temp Pulse Resp BP Pulse Ox 36.8 C 76 18 170/63 H 98 02/20/20 14:24 02/20/20 14:24 02/20/20 14:24 02/20/20 14:24 02/20/20 14:24 Oxygen Delivery Method Room Air Weight: 114.1 kg Body Mass Index (BMI) 44.5 Intake and Output for Last 24 Hours 02/18/20 02/19/20 02/20/20 23:59 23:59 23:59 Intake Total 3155 / 3375 220 / 220 Balance 3155 / 3375 220 / 220 General: Alert, No apparent distress, - - oriented to self. able to tell me year, but not month. HEENT: Atraumatic, PERRLA, Normocephalic Oral: Moist Mucosa, No Gingival or Mucosal Lesions/ Ulcerations Neck: No Nodes, Thyroid Normal Size and Texture Lungs: Clear to auscultation, Normal air movement, No rhonchi, No wheeze Cardiovascular: Regular rate, Regular Rhythm, Normal S1, Normal S2 Abdomen: Bowel Sounds Present, Soft, Non Tender, Non-Distended, No Hepato-splenomegaly Extremities: No edema, No Calf Tenderness Laboratory Results 02/19/20 17:09: POC Glucose 155 H 02/19/20 22:24: POC Glucose 82 02/19/20 22:30: Ur Random Sodium 46, Urine Creatinine 18.40 02/19/20 22:30: Urine Urea Nitrogen 180 02/20/20 05:15: Triglycerides 183, Cholesterol 146, LDL Cholesterol 65, VLDL Cholesterol 37, HDL Cholesterol 44 02/20/20 06:23: POC Glucose 111 H 02/20/20 12:24: POC Glucose 179 H Current Medications Acetaminophen (Acetaminophen 325 Mg Tablet) 650 mg PO Q6H PRN PRN PRN Reason: Pain Score 1-10/Temp > 100.7 F Last Admin: 02/20/20 06:20 Dose: 650 mg Documented by: Ascorbic Acid (Ascorbic Acid 500 Mg Tablet) 500 mg PO DAILY [facility] Last Admin: 02/20/20 10:22 Dose: 500 mg Documented by: Aspirin (Aspirin 81 Mg Tab.Chew) 81 mg PO DAILY@0800 [facility] Last Admin: 02/20/20 10:22 Dose: 81 mg Documented by: Dextrose (Dextrose 50%-Water 25 Gm/50 Ml Disp.Syrin) 0 gm IV X1 PRN; Protocol PRN Reason: Hypoglycemia Enoxaparin Sodium (Enoxaparin 40 Mg/0.4 Ml Syringe) 40 mg SC DAILY [facility] Last Admin: 02/20/20 10:21 Dose: 40 mg Documented by: Gabapentin (Gabapentin 100 Mg Capsule) 100 mg PO TID [facility] Last Admin: 02/20/20 14:29 Dose: 100 mg Documented by: Glipizide (Glipizide 10 Mg Tablet) 10 mg PO DAILY@0730 [facility] Last Admin: 02/20/20 06:20 Dose: 10 mg Documented by: Glucagon (Glucagon 1 Mg/Ml Syringe) 1 mg IM .X1 PRN PRN Reason: Hypoglycemia Sodium Chloride () 250 mls @ 15 mls/hr IV .[id number] PRN PRN Reason: Saline Flush Sodium Chloride () 250 mls @ 15 mls/hr IV .[id number] PRN PRN Reason: Additional IVPB Infusion Insulin Glargine (Insulin Glargine 100 Units/Ml Pen) 70 units SC QHS [facility] Last Admin: 02/19/20 22:24 Dose: Not Given Documented by: Insulin Human Lispro (Insulin Lispro 100 Unit/Ml Insuln.Pen) 0 unit SC ACHS [facility]; Protocol Last Admin: 02/20/20 12:26 Dose: Not Given Documented by: Insulin Human Lispro (Insulin Lispro 100 Unit/Ml Insuln.Pen) 8 unit SC 0800,1200,1700 [facility] Last Admin: 02/20/20 12:26 Dose: Not Given Documented by: Lidocaine (Lidocaine 5% Patch) 1 patch TOPICAL DAILY [facility]; Protocol Last Admin: 02/20/20 10:22 Dose: 1 patch Documented by: Metoprolol Tartrate (Metoprolol Tartrate 25 Mg Tablet) 25 mg PO BID [facility] Last Admin: 02/20/20 10:21 Dose: 25 mg Documented by: Multivitamins (Multivitamins,Therapeutic Tablet) 1 tablet PO DAILYCM [facility] Last Admin: 02/20/20 10:21 Dose: 1 tablet Documented by: Multivitamins (Vitamin B Comp W-C Capsule) 1 capsule PO DAILY [facility] Last Admin: 02/20/20 10:21 Dose: 1 capsule Documented by: Ondansetron HCl (Ondansetron 4 Mg/2 Ml Vial) 4 mg IV Q8H PRN PRN PRN Reason: NAUSEA/VOMITING Pantoprazole Sodium (Pantoprazole Sodium 20 Mg Tablet) 20 mg PO DAILY [facility] Last Admin: 02/20/20 10:21 Dose: 20 mg Documented by: Sodium Chloride (0.9% Saline Lock 10 Ml Syringe) 10 - 40 ml IV UD PRN PRN Reason: SALINE FLUSH STROKE Vital Signs/Narrative: Vital Signs Temp Pulse Resp BP Pulse Ox 02/20/20 14:24 36.8 C 76 18 170/63 H 98 Medical Necessity - Tobacco Use Smoking Status: Current every day smoker Tobacco Use: Cigarettes Assessment/Plan All Active Problems (Last Reviewed 02/19/20 @ 04:[address] Dionicio Woodward MD) Uncontrolled diabetes mellitus (Acute) Encephalopathy acute (Acute) 1. 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 Stated the he was concerned about some paroxysmal atrial fibrillation. Likely will get an event monitor for longer capture of potential arrhythmia. * Neurology strongly feels that the stroke is the cause of her confusion. * Speech therapy as outpatient 2. DM2 * fair control at present * on glargine, scheduled U500 and SSI * on glipizide * dulaglutide as outpt 3. VTE prophylaxis: LMWH Updated pt's dtr, Silvia. States that she would not be able to pick up operator the patient today as she lives over an hour away and patient's son who is 17, would not build to pick her up until tomorrow. So plan is to monitor the patient here in the hospital and then discharge in the morning. Explained that we will do our best to try to discharge patient room in the morning, however given the current Covid influx, that cannot be guaranteed. Greater than 35 minutes of which greater than 50% of time was corning the patient's care and discussing with the patient's daughter about the patient's findings in regards to the stroke and plan for discharge. Inpatient E&M: 44729 Subs Hosp L3
[2020-02-20] MEDS: Clopidogrel Bisulfate 75 MG Tablet PO (18:06)
[2020-02-20] MEDS: Insulin Lispro 100 UNIT/ML INSULN.PEN 8 UNIT SC (18:06)
[2020-02-20] MEDS: Insulin Lispro 100 UNIT/ML INSULN.PEN SC ×2 (18:07→23:11)
[2020-02-20 18:16] LABS: Bedside Glucose 172 mg/dL (70-110)
[2020-02-20 18:50] LABS: Hemoglobin A1c 9.8 % (3.8-5.6)
[2020-02-20 23:20] LABS: Bedside Glucose 172 mg/dL (70-110)
[2020-02-21 01:35] VITALS: BP 125/63; PULSE 71; RESP 14; TEMP 36.7; O2SAT 96
[2020-02-21] MEDS: Acetaminophen 325 MG Tablet 650 MG PO (01:36)
[2020-02-21 03:00] VITALS: PULSE 68
[2020-02-21 06:16] VITALS: BP 164/90; PULSE 69; RESP 16; TEMP 36.5; O2SAT 98
[2020-02-21] MEDS: Gabapentin 100 MG Capsule PO (06:20)
[2020-02-21] MEDS: Insulin Lispro 100 UNIT/ML INSULN.PEN 8 UNIT SC (07:54)
[2020-02-21] MEDS: Insulin Lispro 100 UNIT/ML INSULN.PEN SC (07:54)
[2020-02-21] MEDS: Aspirin 81 MG TAB.CHEW PO (07:55)
[2020-02-21] MEDS: glipiZIDE 10 MG Tablet PO (07:56)
[2020-02-21] MEDS: Vitamin B Comp W-C Capsule 1 CAP PO (07:56)
[2020-02-21] MEDS: Multivitamins,Therapeutic Tablet 1 TABLET PO (07:56)
[2020-02-21] MEDS: Lidocaine 5% Patch 1 PATCH TOPICAL (07:56)
[2020-02-21 07:57] VITALS: PULSE 80
[2020-02-21] MEDS: Metoprolol Tartrate 25 MG Tablet PO (07:57)
[2020-02-21] MEDS: Enoxaparin 40 MG/0.4 ML Syringe SC (07:58)
[2020-02-21] MEDS: Ascorbic Acid 500 MG Tablet PO (07:59)
[2020-02-21] MEDS: Clopidogrel Bisulfate 75 MG Tablet PO (08:00)
[2020-02-21] MEDS: Pantoprazole Sodium 20 MG Tablet PO (08:00)
[2020-02-21 08:02] VITALS: O2SAT 96
--- NOTE | 2020-02-21 08:11 | PCM.DC ---
- Discharge Diagnoses Current Active Problems: Current Active and Chronic Problems (Last Reviewed 02/19/20 @ 04:[address] Dionicio Woodward MD) Uncontrolled diabetes mellitus (Acute) Encephalopathy acute (Acute) Diabetes (Chronic) HTN (hypertension) (Chronic) Nicotine abuse (Chronic) Fibromyalgia (Chronic) Sciatica (Chronic) Morbid obesity with BMI of 40.0-44.9, adult (Chronic) You will use the following diet at home:: Calorie/Carbohydrate Controlled (specify 1200, 1400, etc) - 1800, Cardiac Your food should be the consistency of: Mechanical soft (ground) Your liquids should be the consistency of: Regular/Thin Discharge Activity: Return to Normal Activity, May Not Drive - until cleared by neurology Call your doctor if you observe: - - increased confusion. unilateral weakness. Allergies/Adverse Reactions: Allergies bee venom protein (honey bee) Allergy (Verified 02/18/20 22:46) Anaphylaxis oxycodone [From Percocet] Allergy (Verified 02/18/20 22:46) tachycardia Tachycardia Tetracyclines Allergy (Verified 02/18/20 22:46) Shortness of breath acetaminophen [From Vicodin] Adverse Reaction (Verified 02/18/20 22:46) Nausea/Vom/Diarrhea hydrocodone [From Vicodin] Adverse Reaction (Verified 02/18/20 22:46) Nausea/Vom/Diarrhea Medications to take at Discharge echinacea 400 mg capsule 400 mg PO BID 04/08/17 metoprolol tartrate 25 mg tablet 25 mg PO BID 04/08/17 Duloxetine HCl 90 mg PO DAILY 06/19/17 Gabapentin [Neurontin] 900 mg PO TID 06/19/17 Omeprazole 20 mg PO DAILY 06/19/17 Vitamin B Complex 1 ea PO DAILY 06/19/17 glipiZIDE XL [Glucotrol Xl] 10 mg PO DAILY 06/19/17 Lisinopril/Hydrochlorothiazide [Zestoretic 20/12.5 Tablet] 2 tab PO DAILY 06/20/17 Ascorbic Acid [Vitamin C] 500 mg PO DAILY 02/18/20 Aspirin [Aspirin, Baby] 81 mg PO DAILY@0800 02/18/20 Dulaglutide [Trulicity] 0.75 mg SQ QWEEK 02/18/20 Insulin Glargine,Hum.rec.anlog [Lantus] 70 unit SC QHS 10/29/20 Insulin Regular, Human [Humulin R U-500 Kwikpen] 8 unit SQ TID 02/18/20 Multivitamin 1 ea PO DAILY 02/18/20 Atorvastatin Calcium 80 mg PO QHS #30 tab 02/21/20 Clopidogrel Bisulfate [Plavix] 75 mg PO DAILY #30 tab 02/21/20 The following prescriptions were given: Atorvastatin Calcium 80 mg PO QHS #30 tab Transmission Status: [id number] Clopidogrel Bisulfate [Plavix] 75 mg PO DAILY #30 tab Transmission Status: [id number] Orders to be completed after discharge: 30-Day Event Recorder [[facility]] Location: None Selected Speech Therapy Evaluation Location: None Selected Primary Care Physician: [facility] Doctor,Out of [NON-STAFF] - Test Results: Test results from this visit will be discussed in further detail at your follow-up appointment, if applicable. Please Follow Up With: Vidya Hdz MD When: or another primary care physician in 1-2 weeks. Please Follow Up With: Delbert Jacob MD - neurology When: 4-6 weeks. Proposed Discharge Date: 02/21/20
--- NOTE | 2020-02-21 08:23 | PCM.DC.SUM ---
Discharge Date and Diagnosis - Problem List Patient Problems: Active and Suspected Problems (Last Reviewed 02/19/20 @ 04:[address] Dionicio Rees MD) Uncontrolled diabetes mellitus (Acute) Encephalopathy acute (Acute) Date of Admission: 02/19/20 Date of Discharge: 02/21/20 - Primary Discharge Diagnosis Acute Problems: Active Problems (Last Reviewed 02/19/20 @ 04:[address] Dionicio Rees MD) Uncontrolled diabetes mellitus (Acute) Encephalopathy acute (Acute) 1. acute CVA acute CVA to left temporal and parietal brain likely cause of confusion pt still confused and anxious on ASA, add high-intensity statin Discussed with [facility] telemetry neurology, recommend aspirin clopidogrel and a Holter monitor upon discharge. Stated the he was concerned about some paroxysmal atrial fibrillation. Likely will get an event monitor for longer capture of potential arrhythmia. Neurology strongly feels that the stroke is the cause of her confusion. Speech therapy as outpatient 2. DM2 A1c 9.8 fair control at present on glargine, scheduled U500 and SSI on glipizide dulaglutide as outpt - Secondary Discharge Diagnosis Chronic Problems: Chronic Problems (Last Reviewed 02/19/20 @ 04:[address] Dionicio Rees MD) Diabetes (Chronic) HTN (hypertension) (Chronic) Nicotine abuse (Chronic) Fibromyalgia (Chronic) Sciatica (Chronic) Morbid obesity with BMI of 40.0-44.9, adult (Chronic) Hospital Course and Treatment Imaging Results: Clinical Impression(s) from Imaging Studies Brain CT 02/18/20 22:59 IMPRESSION: Normal unenhanced CT scan of the brain. Electronically Signed: Yue Calle MD at 23:33 EDT , Service support , Chest X-Ray 02/18/20 23:22 IMPRESSION: No acute cardiopulmonary findings or changes. Negative for consolidation, other infiltrates, pleural effusion or cardiomegaly. Electronically Signed: Yue Calle MD at 23:37 EDT , Service support , Head/Neck CTA 02/19/20 00:57 IMPRESSION: 1. Mild atherosclerotic changes in the right bulb region and the origin of the right internal carotid artery without significant stenosis. 2. Tortuous origin of the common carotid arteries and the proximal right internal carotid artery. 3. Patent bilateral vertebral arteries. 4. No intracranial stenosis is seen. Electronically Signed: Sebastian Mcgill MD at 2:05 EDT Tel , Service support , Brain MRI 02/19/20 03:05 IMPRESSION: Subacute infarct of the left temporal lobe and inferior left parietal lobe. Electronically Signed: Vamsi Woodson MD at 9:25 EDT Tel , Service support , ADDENDUM: 02/19/20 0943 IMPRESSION: Subacute infarct of the left temporal lobe and inferior left parietal lobe. N.B. : The above information has been verbally conveyed by Vamsi Woodson MD to DIONICIO REES on 02/19/2020 09:36:13 (ET). Electronically Signed: Vamsi Woodson MD at 9:25 EDT Tel , Service support , Operations: None Procedures: 2-D Echocardiogram - Left ventricular systolic function is normal. The estimated ejection fraction is 55 %. Normal LV size. Diastolic function is indeterminate. Mildly dilated right ventricle. Mild global right ventricular systolic dysfunction. Mild-Moderate (1-2+) eccentric mitral valve insufficiency. Normal inf Summary of Care Provided: The patient is a 60 year old F with an acute onset of confusion. Patient was admitted and underwent a stroke work-up. MRI showed a subacute infarct of the left temporal and inferior left parietal lobe. Patient clean the rest of her stroke work-up and was evaluated by [facility] neurology. The neurologist recommended dual antiplatelet therapy and 30day event monitor.'s patient be discharged with aspirin and clopidogrel, also adding atorvastatin, high intensity, to the regimen. Patient will have an event monitor and patient instructed to follow-up with [facility] in the next 4 to 6 weeks to review. Patient is still having confusion and has been instructed not to drive. Patient does have young children at home and we have discussed with the patient's adult daughter about this concern and she has assured us that the shoulder will be care and accounting for. 1 the children is 17 years old. Additionally, patient had some issues with dysphagia. Patient was started to be on mechanical soft diet with thin liquids. Patient be given a prescription for speech therapy. [] Patient Problems: Active and Suspected Problems (Last Reviewed 02/19/20 @ 04:[address] Dionicio Rees MD) Uncontrolled diabetes mellitus (Acute) Encephalopathy acute (Acute) - Physical Exam Vitals/I&O's: Vital Signs Temp Pulse Resp BP Pulse Ox 36.5 C L 80 16 164/90 H 96 02/21/20 06:16 02/21/20 07:57 02/21/20 06:16 02/21/20 06:16 02/21/20 08:02 Oxygen Delivery Method Room Air Weight: 114.1 kg Body Mass Index (BMI) 44.5 Intake and Output for Last 24 Hours 02/19/20 02/20/20 02/21/20 23:59 23:59 22:59 Intake Total 3155 / 3375 320 / 320 Balance 3155 / 3375 320 / 320 General: No apparent distress, Confused HEENT: Atraumatic, Normocephalic Oral: Moist Mucosa, No Gingival or Mucosal Lesions/ Ulcerations Psych/Mental Status: Normal Affect, Appropriate Laboratory Results 02/20/20 12:24: POC Glucose 179 H 02/20/20 17:45: Hemoglobin A1c 9.8 H 02/20/20 18:00: POC Glucose 172 H 02/20/20 23:07: POC Glucose 172 H 02/21/20 05:05: PT Pending, INR Pending Current Medications Acetaminophen (Acetaminophen 325 Mg Tablet) 650 mg PO Q6H PRN PRN PRN Reason: Pain Score 1-10/Temp > 100.7 F Last Admin: 02/21/20 01:36 EST Dose: 650 mg Documented by: Ascorbic Acid (Ascorbic Acid 500 Mg Tablet) 500 mg PO DAILY [facility] Last Admin: 02/21/20 07:59 Dose: 500 mg Documented by: Aspirin (Aspirin 81 Mg Tab.Chew) 81 mg PO DAILY@0800 [facility] Last Admin: 02/21/20 07:55 Dose: 81 mg Documented by: Clopidogrel Bisulfate (Clopidogrel Bisulfate 75 Mg Tablet) 75 mg PO DAILY [facility] Last Admin: 02/21/20 08:00 Dose: 75 mg Documented by: Dextrose (Dextrose 50%-Water 25 Gm/50 Ml Disp.Syrin) 0 gm IV X1 PRN; Protocol PRN Reason: Hypoglycemia Enoxaparin Sodium (Enoxaparin 40 Mg/0.4 Ml Syringe) 40 mg SC DAILY [facility] Last Admin: 02/21/20 07:58 Dose: 40 mg Documented by: Gabapentin (Gabapentin 100 Mg Capsule) 100 mg PO TID [facility] Last Admin: 02/21/20 06:20 Dose: 100 mg Documented by: Glipizide (Glipizide 10 Mg Tablet) 10 mg PO DAILY@0730 [facility] Last Admin: 02/21/20 07:56 Dose: 10 mg Documented by: Glucagon (Glucagon 1 Mg/Ml Syringe) 1 mg IM .X1 PRN PRN Reason: Hypoglycemia Sodium Chloride () 250 mls @ 15 mls/hr IV .[id number] PRN PRN Reason: Saline Flush Sodium Chloride () 250 mls @ 15 mls/hr IV .[id number] PRN PRN Reason: Additional IVPB Infusion Insulin Glargine (Insulin Glargine 100 Units/Ml Pen) 70 units SC QHS [facility] Last Admin: 02/20/20 23:11 Dose: 70 units Documented by: Insulin Human Lispro (Insulin Lispro 100 Unit/Ml Insuln.Pen) 0 unit SC ACHS [facility]; Protocol Last Admin: 02/21/20 07:54 Dose: 2 units Documented by: Insulin Human Lispro (Insulin Lispro 100 Unit/Ml Insuln.Pen) 8 unit SC 0800,1200,1700 [facility] Last Admin: 02/21/20 07:54 Dose: 8 units Documented by: Lidocaine (Lidocaine 5% Patch) 1 patch TOPICAL DAILY [facility]; Protocol Last Admin: 02/21/20 07:56 Dose: 1 patch Documented by: Metoprolol Tartrate (Metoprolol Tartrate 25 Mg Tablet) 25 mg PO BID [facility] Last Admin: 02/21/20 07:57 Dose: 25 mg Documented by: Multivitamins (Multivitamins,Therapeutic Tablet) 1 tablet PO DAILYCM [facility] Last Admin: 02/21/20 07:56 Dose: 1 tablet Documented by: Multivitamins (Vitamin B Comp W-C Capsule) 1 capsule PO DAILY [facility] Last Admin: 02/21/20 07:56 Dose: 1 capsule Documented by: Ondansetron HCl (Ondansetron 4 Mg/2 Ml Vial) 4 mg IV Q8H PRN PRN PRN Reason: NAUSEA/VOMITING Pantoprazole Sodium (Pantoprazole Sodium 20 Mg Tablet) 20 mg PO DAILY [facility] Last Admin: 02/21/20 08:00 Dose: 20 mg Documented by: Sodium Chloride (0.9% Saline Lock 10 Ml Syringe) 10 - 40 ml IV UD PRN PRN Reason: SALINE FLUSH Discharge Diet: 1800 Calorie Control Diet Discharge Activity: Return to Normal Activity, May Not Drive - until cleared by neurology Call your doctor if you observe: - - increased confusion. unilateral weakness. Home Medications: Medications to take at Discharge echinacea 400 mg capsule 400 mg PO BID 04/08/17 metoprolol tartrate 25 mg tablet 25 mg PO BID 04/08/17 Duloxetine HCl 90 mg PO DAILY 06/19/17 Gabapentin [Neurontin] 900 mg PO TID 06/19/17 Omeprazole 20 mg PO DAILY 06/19/17 Vitamin B Complex 1 ea PO DAILY 06/19/17 glipiZIDE XL [Glucotrol Xl] 10 mg PO DAILY 06/19/17 Lisinopril/Hydrochlorothiazide [Zestoretic 20/12.5 Tablet] 2 tab PO DAILY 06/20/17 Ascorbic Acid [Vitamin C] 500 mg PO DAILY 02/18/20 Aspirin [Aspirin, Baby] 81 mg PO DAILY@0800 02/18/20 Dulaglutide [Trulicity] 0.75 mg SQ QWEEK 02/18/20 Insulin Glargine,Hum.rec.anlog [Lantus] 70 unit SC QHS 02/18/20 Insulin Regular, Human [Humulin R U-500 Kwikpen] 8 unit SQ TID 02/18/20 Multivitamin 1 ea PO DAILY 02/18/20 Atorvastatin Calcium 80 mg PO QHS #30 tab 02/21/20 Clopidogrel Bisulfate [Plavix] 75 mg PO DAILY #30 tab 02/21/20 Following Prescriptions Were Given to Patient: Atorvastatin Calcium 80 mg PO QHS #30 tab Transmission Status: Received by [facility]/pharmacy #[id number] Clopidogrel Bisulfate [Plavix] 75 mg PO DAILY #30 tab Transmission Status: [id number] Other Amb Orders: 30-Day Event Recorder [[facility]] Location: None Selected Speech Therapy Evaluation Location: None Selected Primary Care Physician: [facility] Doctor,Out of [NON-STAFF] - Please Follow Up With: Vidya Hdz MD When: or another primary care physician in 1-2 weeks. Please Follow Up With: Delbert Jacob MD - neurology When: 4-6 weeks. Disposition: Home Minutes spent on discharge:: 32 Patient Condition:: Fair Medical Necessity - Tobacco Use Smoking Status: Current every day smoker Tobacco Use: Cigarettes Meaningful Use Info Meaningful Use Diagnoses (Choose all that apply): Ischemic CVA - CVA Therapy Assessed for PT,OT and/or ST?: Yes - Ischemic Stroke Antithrombotic order at d/c?: Yes Dx of Atrial fib/flutter?: No Statins at discharge?: Yes Primary Dx Acute Ischemic CVA?: Yes IV tPA ordered during stay?: No Reason IV t-PA not ordered: Treatment not Indicated Inpatient E&M: 56865 Disch Hosp
[2020-02-21 08:25] LABS: International Normalized Ratio 0.9; Prothrombin Time (Protime)PT. 11.7 SECONDS (11.7-14.9)
[2020-02-21 08:31] LABS: Bedside Glucose 171 mg/dL (70-110)
== END 2020-02-21 10:14 | disposition home or self-care (01) | DRG 45 ==
LOC: ED 02-19 02:25 → PCU 02-19 02:45
PROVIDERS: Admitting Provider Hospitalist; Emergency Provider Emergency Medicine
DX: I63.9 Cerebral infarction, unspecified (principal); E11.65 Type 2 diabetes mellitus with hyperglycemia; G93.49 Other encephalopathy; R13.10 Dysphagia, unspecified; M79.7 Fibromyalgia; E66.01 Morbid (severe) obesity due to excess calories; I10 Essential (primary) hypertension; Z79.4 Long term (current) use of insulin; Z68.41 Body mass index [BMI] 40.0-44.9, adult; F41.9 Anxiety disorder, unspecified; F32.9 Major depressive disorder, single episode, unspecified; M54.2 Cervicalgia; M54.30 Sciatica, unspecified side; F17.210 Nicotine dependence, cigarettes, uncomplicated; Z79.899 Other long term (current) drug therapy; Z79.82 Long term (current) use of aspirin
CPT/HCPCS: 36415; 70450; 70496; 70498; 70551; 71045; 80048; 80053; 80061; 81001; 82140; 82570; 82607; 82962; 83036; 84300; 84443; 84540; 85025; 85610; 92507; 92523; 92610; 93306; 99284; J7030; Q9957; Q9967; A4216; C8929

== ENCOUNTER 2021-09-22 17:04 | Emergency (ER) | payer MEDICAID, SELFPAY ==
[2021-09-22 17:05] VITALS: BP 124/76; PULSE 88; RESP 17; TEMP 36.6; O2SAT 97; BMI 37.2
--- NOTE | 2021-09-22 17:18 | EDS_ITS ---
HPI History of Present Illness Chief Complaint: Lower Extremity Injury Informant: patient Narrative Narrative: Patient states that last night she was walking in tennis shoes. She stepped down and had this sharp pain in the plantar surface of her left foot. Nothing poked into the area. She never had bleeding She states she just gets sharp pain if she bears weight or moves the foot. No swelling. No pain in the calf. No numbness tingling weakness. No back pain. PFSH [facility] Medical History Arthritis CVA (cerebral vascular accident) (02/19/20) Encephalopathy acute Essential (primary) hypertension Fibromyalgia Morbid obesity with BMI of 40.0-44.9, adult Nicotine dependence Sciatica Shoulder pain Type 2 diabetes mellitus Uncontrolled diabetes mellitus Home Medications echinacea 400 mg capsule 400 mg PO BID 04/08/17 [History Last Taken 06/19/17 11:00] metoprolol tartrate 25 mg tablet 25 mg PO BID 04/08/17 [History Last Taken 06/19/17 11:00] duloxetine 90 mg PO DAILY 06/19/17 [History Last Taken 06/19/17 11:00] gabapentin 900 mg PO TID 06/19/17 [History Last Taken 06/19/17 11:00] glipizide 10 mg PO DAILY 06/19/17 [History Last Taken 06/19/17 11:00] omeprazole 20 mg PO DAILY 06/19/17 [History Last Taken 06/19/17 11:00] vitamin B complex 1 ea PO DAILY 06/19/17 [History Last Taken 06/19/17 11:00] lisinopril-hydrochlorothiazide 2 tab PO DAILY 06/20/17 [History Last Taken Unknown] ascorbic acid (vitamin C) 500 mg PO DAILY 02/18/20 [History Last Taken Unknown] aspirin 81 mg PO DAILY@0800 02/18/20 [History Last Taken Unknown] dulaglutide 0.75 mg SQ QWEEK 02/18/20 [History Last Taken Unknown] insulin glargine 70 unit SC QHS 02/18/20 [History Last Taken Unknown] insulin regular hum U-500 conc 8 unit SQ TID 02/18/20 [History Last Taken Unknown] multivitamin 1 ea PO DAILY 02/18/20 [History Last Taken Unknown] atorvastatin 80 mg PO QHS #30 tab 02/21/20 [Rx Last Taken Unknown] clopidogrel 75 mg PO DAILY #30 tab 02/21/20 [Rx Last Taken Unknown] Allergy/AdvReac Type Severity Reaction Status Date / Time bee venom protein (honey bee) Allergy Anaphylaxis Verified 09/22/21 17:08 oxycodone [From Percocet] Allergy tachycardia Verified 09/22/21 17:08 Tetracyclines Allergy Shortness Verified 09/22/21 17:08 of breath acetaminophen [From Vicodin] AdvReac Nausea/Vom/ Verified 09/22/21 17:08 Diarrhea hydrocodone [From Vicodin] AdvReac Nausea/Vom/ Verified 09/22/21 17:08 Diarrhea Surgical History H/O shoulder surgery History of knee replacement Social History Smoking Status: Current every day smoker tobacco type: cigarettes alcohol intake: never ROS ROS ED Constitutional Constitutional ED: Denies chills or fever(s) Cardiovascular Cardiovascular: Denies chest pain Respiratory/Chest Respiratory/Chest: Denies dyspnea Gastrointestinal Gastrointestinal: Denies nausea or vomiting Musculoskeletal Musculoskeletal: Reports other Details: Pain in left foot as in history of p resent illness. ; Denies back pain Integumentary Reports other Details: No skin changes noted. ; Denies abscess, Abrasions or rash Neurologic Neurologic: Denies paresthesias or weakness Endocrine Endocrinology: Reports other Details: Patient has a history of diabetes. She has recently lost about 50 pounds so has been taken off insulin. ; Denies polydipsia or polyuria Hematologic/Lymphatic Hematologic/Lymphatic: Reports easy bleeding, easy bruising and other Details: Patient is on Plavix. Allergic/Immunologic Allergic/Immunologic ED: Denies urticaria EXAM Physical Exam Const Vital Signs: 09/22/21 17:05 Temperature 97.9 F Temperature Source Temporal Pulse Rate 88 Respiratory Rate 17 Blood Pressure 124/76 H Blood Pressure Mean 92 Pulse Ox 97 Oxygen Delivery Method Room Air Positive well nourished and well developed General Appearance ED: well developed HEENT normocephalic Chest Wall inspection of chest normal Resp normal respiratory effort Back/Spine Lumbar Spine / Lower Back: Negative for lumbar spinal tenderness Extremity normal to inspection Extremity Narrative: Foot and leg looks normal. There is no swelling asymmetry erythema or distended veins. No tenderness along the deep venous system. Achilles is nontender. Calcaneus is also not tender. She has tenderness in the medial plantar arch of her left foot. But I feel no mass. There is no erythema. No sign of a puncture wound. No deformity noted. Neuro oriented x3 Sensorium / Orientation: alert Skin Lesions: no lesions Rashes: no rashes MDM MDM MDM Narrative Medical decision making narrative: X-ray showed no acute process. Patient will get meds for pain here Tee wrap. Although she says she is allergic to hydrocodone she can take it with Phenergan and she has no problems. Radiography Diagnostic Testing: Clinical Impression(s) from Imaging Studies Foot X-Ray 09/22/21 17:32 IMPRESSION: Degenerative findings of the second and third tarsometatarsal joint. Electronically Signed: Leonard Santa MD at 18:00 EDT Reading Location ID [facility] [place] , Service support , Discharge Plan Triage Chief Complaint: Lower Extremity Injury ED Provider: Jericho Holt Dx/Rx/DC Orders Clinical Impression: Arch pain of left foot Instructions: ED Foot Sprain Prescriptions: No Action metoprolol tartrate 25 mg tablet 25 mg PO BID RF: 0 echinacea 400 mg capsule 400 mg PO BID RF: 0 vitamin B complex 1 EACH capsule 1 ea PO DAILY RF: 0 duloxetine 30 MG capsule,delayed release(DR/EC) 90 mg PO DAILY RF: 0 glipizide 5 MG tablet 10 mg PO DAILY RF: 0 gabapentin 800 MG tablet 900 mg PO TID RF: 0 omeprazole 20 MG capsule,delayed release(DR/EC) 20 mg PO DAILY RF: 0 lisinopril-hydrochlorothiazide 1 TABLET tablet 2 tab PO DAILY RF: 0 insulin glargine 100 UNIT/ML solution 70 unit SC QHS RF: 0 insulin regular hum U-500 conc 500 UNIT/ML insulin pen 8 unit SQ TID RF: 0 multivitamin 1 EACH tablet 1 ea PO DAILY RF: 0 ascorbic acid (vitamin C) 500 MG tablet,chewable 500 mg PO DAILY RF: 0 aspirin 81 MG tablet,chewable 81 mg PO DAILY@0800 RF: 0 dulaglutide 0.75 MG/0.5 ML pen injector 0.75 mg SQ QWEEK RF: 0 clopidogrel 75 MG tablet 75 mg PO DAILY Qty: 30 RF: 0 atorvastatin 80 MG tablet 80 mg PO QHS Qty: 30 RF: 0 Primary Care Provider: James Kirk Referrals: James Kirk MD [Primary Care Provider] - 3-5 Days if not improving Activity Restrictions/Additional Instructions: Ice rest and elevation above the heart. Disposition Disposition: Home, Self Care
--- NOTE | 2021-09-22 17:32 | RAD_ITS ---
EXAM: XR LEFT FOOT COMPLETE, 3 OR MORE VIEWS CLINICAL INDICATION: trauma foot pain TECHNIQUE: Frontal, lateral and oblique views of the left foot. This report was created using [employer] report generation technology. COMPARISON: None. FINDINGS: BONES/JOINTS: Degenerative findings of the second and third tarsometatarsal joint. There is a calcaneal spur. There is an enthesophyte involving the posterior superior calcaneus at the site of insertion of the Achilles tendon. No acute fracture. No subluxation. Normal alignment. No sclerotic or destructive changes observed. SOFT TISSUES: Unremarkable. No soft tissue swelling or gas. No radiopaque foreign body. RAD/Foot min 3 Views IMPRESSION: Degenerative findings of the second and third tarsometatarsal joint. Electronically Signed: Leonard Santa MD at 18:00 EDT Reading Location ID and State: [facility] / [place] , Service support ,
[2021-09-22] MEDS: proMETHazine 25 MG Tablet PO (19:22)
[2021-09-22] MEDS: HYDROcodone Bitartrate/Apap 5/325 Tablet PO (19:22)
[2021-09-22 19:24] VITALS: BP 129/93; PULSE 81; RESP 16; O2SAT 98
== END 2021-09-22 19:26 | disposition home or self-care (01) ==
PROVIDERS: Emergency Provider Emergency Medicine; PCP Family Medicine; Visit Provider Emergency Medicine
DX: M79.672 Pain in left foot (principal); E66.01 Morbid (severe) obesity due to excess calories; E11.9 Type 2 diabetes mellitus without complications; Z79.4 Long term (current) use of insulin; I10 Essential (primary) hypertension; Z86.73 Personal history of transient ischemic attack (TIA), and cerebral infarction without residual deficits; M79.7 Fibromyalgia; M19.90 Unspecified osteoarthritis, unspecified site; Z79.82 Long term (current) use of aspirin; Z79.899 Other long term (current) drug therapy; F17.210 Nicotine dependence, cigarettes, uncomplicated; Z68.37 Body mass index [BMI] 37.0-37.9, adult
CPT/HCPCS: 73630; 99283